=== PATIENT | female | born 1940 | race Caucasian/White ===

== ENCOUNTER 2023-04-22 17:36 | Emergency (ER) | payer MEDICARE, SELFPAY ==
[2023-04-22 17:42] VITALS: BP 148/82; PULSE 80; RESP 22; TEMP 36.8; O2SAT 99; BMI 29.5
--- NOTE | 2023-04-22 17:47 | CT_ITS ---
[facility] [address], [place] [address] Patient Name: PARUL PAEZ MRN: [id number] date: 1940 Sex: F Assigned Patient Location: ER Current Patient Location: Accession/Order Number: [id number] Exam Date: 04/22/2023 19:28 Report Date: 04/22/2023 20:10 At the request of: ROSA ELENA AKINS Procedure: CT abdomen pelvis w con EXAM: CT abdomen pelvis w con HISTORY: Abdominal pain COMPARISON: CT from 04/19/2023 TECHNIQUE: CT abdomen pelvis w con FINDINGS: LOWER CHEST: LUNG BASES / PLEURA: Normal. DISTAL ESOPHAGUS: Normal. HEART / VESSELS: No significant abnormality. ABDOMEN and PELVIS: LIVER: Normal. BILIARY TRACT: Normal. GALLBLADDER: No abnormality. PANCREAS: Normal. SPLEEN: Normal. ADRENALS: Normal. KIDNEYS: Small hypoattenuating lesions in both kidneys, too small to further characterize but likely simple renal cysts. LYMPH NODES: None enlarged. STOMACH / SMALL BOWEL: No significant abnormality. Oral contrast is present and extends into the distal small bowel. COLON / APPENDIX: Colonic diverticulosis. Thickening of the rectosigmoid colon with mild adjacent fat stranding (image 109 of series 3). The appendix is normal. PERITONEUM / MESENTERY: Stranding around the distal colon as described above. No free fluid or air. RETROPERITONEUM: Normal. VESSELS: Severe atherosclerotic disease of the normal caliber abdominal aorta and its major branches. URINARY BLADDER: Normal. Bilateral ureteral jets are visualized. No abnormal filling defect. REPRODUCTIVE ORGANS: Simple cyst of the left ovary measuring 1.7 cm. The right ovary and appears to extend into a right obturator hernia defect (image 154 of series 3). BODY WALL: As mentioned above, right obturator hernia containing what appears to be the right ovary. MUSCULOSKELETAL: No significant abnormality. Mild degenerative arthrosis of both hips. CT/CT abdomen pelvis w con IMPRESSION: 1. Findings of mild and uncomplicated rectosigmoid colitis. 2. Enhancing cutaneous/subcutaneous nodule in the lower anterior chest wall midline, malignancy cannot be excluded. Clinical correlation is recommended. This impression was placed in incidental findings folder. 3. Right obturator hernia defect containing what appears to be the right ovary. Electronically authenticated by: YANIQUE MARTÍNEZ Date: 04/22/2023 20:10
--- NOTE | 2023-04-22 17:52 | ED.ABDPAIN1 ---
HPI - Abdominal Pain General Chief Complaint: Abdominal Pain Stated Complaint: Abdominal Pain Time Seen by Provider: 04/22/23 17:37 Source: patient Mode of arrival: Wheelchair Limitations: no limitations History of Present Illness HPI narrative: Patient is an 82-year-old female who presents to the emergency department for abdominal pain. Daughter is the primary historian as the patient is moaning and guarding her abdomen at time of initial interview. Apparently the patient has had abdominal pain for the last 3 days and was seen at the [facility] emergency department for this. CT and labs were unremarkable, patient's daughter brought her to this facility today because she does not trust [facility] . She saw her PCP today. No new medications started for this pain. Patient has had no fevers, chills, vomiting, diarrhea. Patient's daughter states that the patient has had similar issues with this abdominal pain intermittently for years. She has been seen by Dr. Carney in [place] for gastroenterology. No source of her abdominal pain has ever been found. Related Data Home Medications Medication Instructions Recorded Confirmed escitalopram oxalate 10 mg tablet 10 mg PO DAILY 04/22/23 04/22/23 estradiol 0.01% (0.1 mg/gram) 1 appful vaginal DAILY 04/22/23 04/22/23 vaginal cream Previous Rx's Medication Instructions Recorded hyoscyamine sulfate 0.125 mg 0.125 mg PO Q6H PRN abdominal pain 04/22/23 tablet (Levsin) #12 tabs metronidazole 500 mg tablet 500 mg PO Q12H 10 days #20 tabs 04/22/23 ondansetron 4 mg disintegrating 4 mg PO Q6H PRN nausea and 04/22/23 tablet vomiting #12 tabs tramadol 50 mg tablet 50 mg PO Q4H PRN pain 4 days #15 04/22/23 tabs Allergies Allergy/AdvReac Type Severity Reaction Status Date / Time amoxicillin Allergy Severe Verified 04/22/23 19:37 phenylephrine Allergy Severe Verified 04/22/23 19:37 Review of Systems ROS Constitutional Denies: fever or chills Ears, nose, mouth, and throat Denies: throat pain or nasal congestion Cardiovascular Denies: chest pain Respiratory Denies: shortness of breath or cough Gastrointestinal Reports: abdominal pain; Denies: nausea, vomiting or diarrhea Genitourinary Denies: painful urination Musculoskeletal Denies: back pain or neck pain Integumentary/Breast Denies: rash Neurological Denies: headache PFSH PFSH Medical History (Updated 04/22/23 @ 20:46 by GONZALEZ Mujica) Hyperlipemia ?E78.5 - Hyperlipidemia, unspecified (ICD-10) COPD (chronic obstructive pulmonary disease) ?J44.9 - Chronic obstructive pulmonary disease, unspecified (ICD-10) C. difficile diarrhea ?A04.72 - Enterocolitis due to Clostridium difficile, not specified as recurrent (ICD-10) Diverticulosis ?K57.90 - Diverticulosis of intestine, part unspecified, without perforation or abscess without bleeding (ICD-10) Surgical History (Updated 04/22/23 @ 19:36 by Jessica Cervantes) H/O eye surgery ?Z98.890 - Other specified postprocedural states (ICD-10) Exam Narrative Exam Narrative: Gen.: Awake, alert, Moaning, anxious Head: Normocephalic, atraumatic ENT: Moist mucous membranes Respiratory: No respiratory distress, lungs clear bilaterally Cardio: Regular rate and rhythm Gastrointestinal: Abdomen is soft, Nondistended and diffusely tender to palpation in the bilateral lower quadrants of the abdomen. Voluntary guarding with no rebound noted. Extremities: Moves extremities equally Psych: Normal mood and affect Neuro: No focal neuro deficit Skin: Warm, dry, intact Constitutional Vital Signs, click to edit/add: Last Vital Signs Temp 98.3 F 04/22/23 17:42 Pulse 53 L 04/22/23 20:15 Resp 16 04/22/23 20:15 BP 142/78 H 04/22/23 20:24 Pulse Ox 95 04/22/23 20:15 O2 Del Method Room Air 04/22/23 20:15 Course Vital Signs Vital signs: Vital Signs Temperature 98.3 F 04/22/23 17:42 Pulse Rate 80 04/22/23 17:42 Respiratory Rate 22 04/22/23 17:42 Blood Pressure 148/82 H 04/22/23 17:42 Pulse Oximetry 99 04/22/23 17:42 Oxygen Delivery Method Room Air 04/22/23 17:42 Temperature 98.3 F 04/22/23 17:42 Pulse Rate 53 L 04/22/23 20:15 Respiratory Rate 16 04/22/23 20:15 Blood Pressure 142/78 H 04/22/23 20:24 Pulse Oximetry 95 04/22/23 20:15 Oxygen Delivery Method Room Air 04/22/23 20:15 MDM - Abdominal Pain MDM Narrative Medical decision making narrative: She hadReceived IV fluids, pain medication and nausea medication. Significant improvement with these medications. Lab studies show elevated lactic acid but no other acute abnormalities. CT of the abdomen and pelvis with IV and oral contrast shows the patient has mild uncomplicated colitis and an incidental finding of lung nodule. There is also an incidental finding of right ovary appears to be contained in the hernia in the abdominal wall. Patient is resting comfortably on reevaluation by attending physician. Dr. Hale discussed CT results with the patient and her daughter at bedside. They were offered admission if the patient does not feel comfortable going home, patient and daughter are comfortable with treatment plan to be treated as an outpatient with oral Flagyl and a short course of analgesics and nausea medication. They are instructed to follow-up with general surgery for further evaluation and treatment. Return to the emergency department if symptoms change or worsen. Medical Records Attestation: I reviewed the patient's medical records. Lab Data Attestation: I reviewed the patient's lab results. Labs: Lab Results 04/22/23 04/22/23 Range/Units 18:10 19:00 WBC 6.8 (4.0-11.0) 10^3/uL RBC 3.86 L (4.20-5.40) 10^6/uL Hgb 12.3 (12.0-16.0) g/dL Hct 36.9 (36.0-48.0) % MCV 95.6 (81.0-99.0) fL MCH 31.9 (26.7-34.0) pg MCHC 33.3 (29.9-35.2) g/dL RDW 13.6 (11.0-15.0) % Plt Count 208 (150-450) 10^3/uL MPV 11.4 (9.5-13.5) fL Neut % (Auto) 58.4 (43.0-75.0) % Lymph % (Auto) 32.7 (20.5-60.0) % Rhea % (Auto) 7.8 (1.7-12.0) % Eos % (Auto) 0.6 L (0.9-7.0) % Baso % (Auto) 0.4 (0.2-2.0) % Neut # (Auto) 4.0 (1.4-6.5) 10^3/uL Lymph # (Auto) 2.2 (1.2-3.8) 10^3/uL Rhea # (Auto) 0.5 (0.3-0.8) 10^3/uL Eos # (Auto) 0.0 (0.0-0.7) 10^3/uL Baso # (Auto) 0.0 (0.0-0.1) 10^3/uL Abs Immat Gran (auto) 0.01 (0.00-0.03) 10^3/uL Imm/Tot Granulo (auto) 0.1 (0.0-0.5) % Sodium 136 (136-145) mmol/L Potassium 3.9 (3.5-5.1) mmol/L Chloride 100 (98-107) mmol/L Carbon Dioxide 22.5 (21.0-32.0) mmol/L Anion Gap 17.4 BUN 17.0 (7.0-18.0) mg/dL Creatinine 0.96 (0.55-1.02) mg/dL Est GFR ( Amer) >60 (>=60) Est GFR (Non-Af Amer) 56 L (>=60) BUN/Creatinine Ratio 17.7 Glucose 101 (74-106) mg/dL Lactate 2.4 H* (0.4-2.0) mmol/L Calcium 9.6 (8.5-10.1) mg/dL Total Bilirubin 0.5 (0.2-1.0) mg/dL AST 17 (15-37) U/L ALT 11 L (14-59) U/L Alkaline Phosphatase 76 (46-116) U/L Total Protein 8.0 (6.4-8.2) g/dL Albumin 3.9 (3.4-5.0) g/dL Globulin 4.1 g/dL Albumin/Globulin Ratio 1.0 Lipase 36.0 (16.0-77.0) U/L Urine Color Lt. yellow (YELLOW) Urine Clarity Clear (CLEAR) Urine pH 8.5 (5.0-9.0) Ur Specific [place] 1.010 (1.005-1.025) Urine Protein Negative (NEG/TRACE) mg/dL Urine Glucose (UA) Negative (NEGATIVE) mg/dL Urine Ketones Negative (NEGATIVE) mg/dL Urine Occult Blood Negative (NEGATIVE) Urine Nitrite Negative (NEGATIVE) Urine Bilirubin Negative (NEGATIVE) Urine Urobilinogen 0.2 (0.2-1.0) EU/dL Ur Leukocyte Esterase Negative (NEGATIVE) Imaging Data CT scan - abdomen: Attestation: I have reviewed the pertinent imaging results. Radiologist's impression: ITS Impressions Abdomen/Pelvis CT 04/22/23 17:47 IMPRESSION: 1. Findings of mild and uncomplicated rectosigmoid colitis. 2. Enhancing cutaneous/subcutaneous nodule in the lower anterior chest wall midline, malignancy cannot be excluded. Clinical correlation is recommended. This impression was placed in incidental findings folder. 3. Right obturator hernia defect containing what appears to be the right ovary. Electronically authenticated by: YANIQUE MARTÍNEZ Date: 04/22/2023 20:10 Discharge Plan Discharge Chief Complaint: Abdominal Pain Clinical Impression: Colitis, Abdominal pain Patient Disposition: Home, Self-Care Time of Disposition Decision: 20:46 Condition: Good Mode of Transportation: Private Vehicle Prescriptions / Home Meds: New metronidazole 500 mg tablet 500 mg PO Q12H 10 Days Qty: 20 0RF tramadol 50 mg tablet 50 mg PO Q4H PRN (Reason: pain) 4 Days Qty: 15 0RF Rx Instructions: DX: R10.84 hyoscyamine sulfate [Levsin] 0.125 mg tablet 0.125 mg PO Q6H PRN (Reason: abdominal pain) Qty: 12 0RF ondansetron 4 mg tablet,disintegrating 4 mg PO Q6H PRN (Reason: nausea and vomiting) Qty: 12 0RF No Action escitalopram oxalate 10 mg tablet 10 mg PO DAILY estradiol 0.01 % (0.1 mg/gram) cream 1 appful VAGINAL DAILY Instructions: Acute Abdominal Pain (ED), Colitis (ED) Stand Alone Forms: Portal Instructions Referrals: Betty FLANNERY [Physician] - 1 week John Alvarenga MD [Physician] - 1 week HIRA PAREDES [Primary Care Provider] - 1 week Discharge Date/Time: 04/22/23 21:05
[2023-04-22] MEDS: 0.9 % SODIUM CHLORIDE 1,000 ML 1000 ML IV (18:13)
[2023-04-22] MEDS: HYDROMORPHONE HCL 0.5 MG/0.5 ML SYRINGE IV (18:13)
[2023-04-22] MEDS: HYOSCYAMINE SULFATE 0.125 MG TAB.SUBL SL (18:14)
[2023-04-22] MEDS: ONDANSETRON PF 4 MG/2 ML VIAL IV (18:14)
[2023-04-22 18:28] LABS: Basophils Percent Auto 0.4 % (0.2-2.0); Eosinophils Percent Auto 0.6 % (0.9-7.0); Hematocrit 36.9 % (36.0-48.0); Hemoglobin 12.3 g/dL (12.0-16.0); Immature Granulocytes Abs Auto 0.01 10^3/uL (0.00-0.03); Immature Granulocytes Pct Auto 0.1 % (0.0-0.5); Lymphocytes Absolute Auto 2.2 10^3/uL (1.2-3.8); Lymphocytes Percent Auto 32.7 % (20.5-60.0); Mean Corpuscular HGB Conc 33.3 g/dL (29.9-35.2); Mean Corpuscular Hemoglobin 31.9 pg (26.7-34.0); Mean Corpuscular Volume 95.6 fL (81.0-99.0); Mean Platelet Volume 11.4 fL (9.5-13.5); Monocytes Absolute Auto 0.5 10^3/uL (0.3-0.8); Monocytes Percent Auto 7.8 % (1.7-12.0); Neutrophils Percent Auto 58.4 % (43.0-75.0); Platelet Count 208 10^3/uL (150-450); Red Blood Count 3.86 10^6/uL (4.20-5.40); Red Cell Distribution Width 13.6 % (11.0-15.0); White Blood Count 6.8 10^3/uL (4.0-11.0)
[2023-04-22 18:44] LABS: Alanine Aminotransferase 11 U/L (14-59); Albumin Level 3.9 g/dL (3.4-5.0); Alkaline Phosphatase 76 U/L (46-116); Anion Gap 17.4; Aspartate Amino Transferase 17 U/L (15-37); BUN Creatinine Ratio 17.7; Bilirubin Total 0.5 mg/dL (0.2-1.0); Calcium 9.6 mg/dL (8.5-10.1); Carbon Dioxide 22.5 mmol/L (21.0-32.0); Chloride 100 mmol/L (98-107); Estimated GFR (African America >60 (>=60); Estimated GFR (Non-African Ame 56 (>=60); Globulin 4.1 g/dL; Glucose 101 mg/dL (74-106); Potassium 3.9 mmol/L (3.5-5.1); Sodium 136 mmol/L (136-145)
[2023-04-22 18:50] LABS: Lactate/Lactic Acid 2.4 mmol/L (0.4-2.0)
[2023-04-22 19:10] VITALS: PULSE 60; RESP 16; O2SAT 98
[2023-04-22 19:20] LABS: Bilirubin Urine NEGATIVE (NEGATIVE); Blood Urine NEGATIVE (NEGATIVE); Clarity Urine CLEAR (CLEAR); Color Urine LT. YELLOW (YELLOW); Glucose Urine UA NEGATIVE (NEGATIVE); Ketones Urine NEGATIVE (NEGATIVE); Leukocyte Esterase Urine NEGATIVE (NEGATIVE); Nitrite Urine NEGATIVE (NEGATIVE); Protein Urine NEGATIVE (NEG/TRACE); Urobilinogen Urine 0.2 EU/dL (0.2-1.0); pH Urine 8.5 (5.0-9.0)
[2023-04-22 19:25] LABS: Urine Microscopic Indicated NO
[2023-04-22 19:48] VITALS: PULSE 55; RESP 16; O2SAT 96
[2023-04-22 20:15] VITALS: PULSE 53; RESP 16; O2SAT 95
[2023-04-22 20:24] VITALS: BP 142/78
== END 2023-04-22 21:05 | disposition home or self-care (01) ==
PROVIDERS: Physician Assistant; Emergency Provider Internal Medicine; PCP Family Medicine
DX: K52.9 Noninfective gastroenteritis and colitis, unspecified (principal); R10.9 Unspecified abdominal pain; E78.5 Hyperlipidemia, unspecified; J44.9 Chronic obstructive pulmonary disease, unspecified; Z79.899 Other long term (current) drug therapy; Z98.890 Other specified postprocedural states
CPT/HCPCS: 36415; 74177; 80053; 81003; 83605; 83690; 85025; 96374; 96375; 99285; J1170; J2405; Q9967

== ENCOUNTER 2023-05-15 17:01 | Emergency (ER) | payer MEDICARE, SELFPAY ==
[2023-05-15 17:06] VITALS: BP 182/90; PULSE 72; RESP 26; TEMP 36.9; O2SAT 98; BMI 21.3
--- OUTSIDE RECORDS SUMMARY | 2023-05-15 17:11 | XMS_ITS | CCD ---
Author Name Unknown Address [facility] [address] [place] [address] Organization [facility] Care Team Providers Care Job Captain Name Role Phone Manuel Gould Unavailable DO Manuel Gould Primary Care Provider DO Manuel Gould Attending Provider DO Antonio Sierra Attending Provider DO Manuel Gould Primary Care Provider DO Manuel Gould Attending Provider [phone] Rubens Bellamy Unavailable DO Manuel Gould Referring Provider Self, Referral Attending Provider Unavailable DO Lazarus Liu Emergency Provider DO Manuel Gould Primary Care Provider Manuel Gould Admitting Unavailable Manuel Gould Primary Care Unavailable Manuel Gould Attending Unavailable Manuel Gould Primary Care Unavailable Manuel Gould Referring Unavailable Self, Referral Admitting Unavailable Self, Referral Attending Unavailable Manuel Gould Primary Care Unavailable Lazarus Liu Admitting Unavailable Lazarus Liu Attending Unavailable Allergies Allergy Classification Reported Allergen(s) Allergy Type Date of Onset Reaction(s) Facility (10 sources) Amoxicillin Drug Allergy Unknown [place] [facility] Other (10 sources) Phenylephrine Drug Allergy Unknown [place] [facility] Other (6 sources) Amoxicillin; Translations: [amoxicillin] Drug Allergy 0 Unknown Reaction [facility] (6 sources) Phenylephrine; Translations: [phenylephrine] Drug Allergy 0 Unknown Reaction [facility] Medications Current Medications Medication Drug Class(es) Dates Sig (Normalized) Sig (Original) biotin 1 mg chewable tablet (10 sources) Biotin 1000 MCG as directed Orally BID Active Biotin 1000 MCG as directed Orally BID Active Biotin 1000 MCG as directed Orally BID Not-Taking busPIRone hydrochloride 5 mg oral tablet (1 source) take 1 tablet by mouth every twelve hours busPIRone HCl 5 MG 1 tablet Orally Twice a day Active Calcium Carbonate (2 sources) Caltrate 600 Act bibiana calcium carbonate 1500 mg / cholecalciferol 800 unt chewable tablet (5 sources) Vitamin D Start: 10-14-19 18 take 1 tablet by mouth twice daily Calcium Carbonate-Vitamin D3 (Caltrate 600 Plus D) 600 mg (1,500 mg)-800 unit Tablet,Chewable Active 1 TAB PO Twice daily October 12, 2017 11:00pm cholecalciferol 0.05 mg oral capsule (3 sources) Vitamin D take 1 capsule by mouth every twenty-four hours Vitamin D 50 MCG (2000 UT) 1 tablet Orally Once a day Active Commode Bedside - (8 sources) Start: 11-17-19 20 Commode Bedside - as directed for 90 day(s) Oct, Active escitalopram 10 mg oral tablet (11 sources) Serotonin Reuptake Inhibitor Start: 04-19-19 take 10 mg by mouth once daily Escitalopram Oxalate Active 10 MG PO Daily April 19, 2023 12:00am take 1 tablet by buck th every twenty-four hours Escitalopram Oxalate 5 MG 1 tablet Orall y Once a day for 90 days Active estradiol 0.1 mg/ml vaginal cream (15 sources) Estrogen Start: 10-13-2017 Estradiol (Est race) 0.01 % (0.1 mg/gram) Cream Active 1 GM VAGINAL every week October 12, 2017 11:00pm Estrace 0.1 MG/G M Vaginal Active Estrace 0.1 MG/G M Vaginal Active glucosamine hydrochloride 750 mg oral tablet (15 sources) Start: 12-03-2018 take 2 tablets by mouth every twelve hours Glucosamine 750 MG 2 capsule with a meal Orally BID Nov, Active Start: 12-03-2018 take 2 capsules by m outh twice daily Glucosamine 750 MG 2 capsule with a meal Orally BID Nov, Active Start: 10-13-2017 Glucosamine 2k [id number] Active 1 TAB PO As Directed October 12, 2017 11:00pm Start: 10-13-2017 Glucosamine 2k [id number] Active 1 TAB PO As Directed October 13, 2017 12:00am ibandronic acid 150 mg oral tablet (11 sources) Bisphosphonate Start: 04-19-2023 take 150 mg by mouth every month Ibandronate Active 150 MG PO every month April 19, 2023 12:00am Lactobacillus Combination No.4 (Probiotic) 3 billion cell Capsule (5 sources) Start: 10-13-2017 take 3 capsules by mouth once daily Lactobacillus Combination No.4 (Probiotic) 3 billion cell Capsule Active 3000 MMU CELLS PO Daily October 12, 2017 11:00pm Start: 10-13-2017 take 3 capsules by m outh once daily Lactobacillus Combination No.4 (Probiotic) 3 billion cell Capsule Active 3000 MMU CELLS PO Daily October 13, 2017 12:00am loperamide hydrochloride 2 mg oral tablet (15 sources) Opioid Agonist Start: 08-20-2017 Loperamide (Im odium A-D) 2 mg Tablet Active 2 MG PO Every 2 hours August 19, 2017 11:00pm after each loose stool until symptoms controlled; do not exceed 16 mg total dose in 24 hrs Imodium A-D PRN Not-Taking/PRN Imodium A-D PRN Not-Taking Probiotic Daily - (10 sources) Probiotic Daily - Orally Active Vitamin D 1000 UNIT (5 sources) take 1 tablet by buck th once daily Vitamin D 1000 UNIT 1 tablet Orally Once a day Active Vitamin D 50 MCG (2000 UT) (2 sources) take 1 tablet by buck th once daily Vitamin D 50 MCG (2000 UT) 1 tablet Orally Once a day Active Completed/Discontinued Medications Medication Drug Class(es) Dates Sig (Normalized) Sig (Original) betamethasone 0.5 mg/ml / clotrimazole 10 mg/ml topical cream (5 sources) Azole Antifungal, Corticosteroid Start: 10-13-2017 End: 04-19-2023 Clotrimazole-Beta methasone (Lotrisone) 1-0.05 % Cream Discontinued 1 APPLIC TOPICAL As Directed October 12, 2017 11:00pm April 19, 2023 2:50pm Calcium 600+D Plus Minerals 600-400 MG-UNIT (10 sources) take 1 tablet by mouth twice daily at mealtime Calcium 600+D Plus Minerals 600-400 MG-UNIT 1 tablet with meals Orally Twice a day for 30 day(s) Not-Taking/PRN take 1 tablet by buck th twice daily at mealtime Calcium 600+D Plus Minerals 600-400 MG-UNIT 1 tablet with meals Orally Twice a day for 30 day(s) Not-Taking take 1 tablet by buck th twice daily at mealtime Calcium 600+D Plus Minerals 600-400 MG-UNIT 1 tablet with meals Orally Twice a day for 30 day(s) Active hydrOXYzine hydrochloride 25 mg oral tablet (8 sources) Antihistamine Start: 10-13-2017 End: 04-19-2023 take 25 mg by mouth four times daily Hydroxyzine Hcl Discontinued 25 MG PO Four times daily October 12, 2017 11:00pm April 19, 2023 2:51pm take 1 tablet by buck th every twenty-four hours hydrOXYzine HCl 25 MG 1 tablet at bedtim e as needed Orally Once a day Active melatonin 5 mg oral tablet (5 sources) Start: 10-13-2017 End: 04-19-2023 take 5 mg by mouth at bedtime Melatonin Discontinued 5 MG PO Bedtime October 12, 2017 11:00pm April 19, 2023 2:51pm Triamcinolone (10 sources) Corticosteroid Start: 07-07-2012 KENALOG - 10 m g Jun, 40 mg Problems Problem Classification Problem Date Documented Da te Episodic/Chronic Abdominal hernia (1 source) Ventral hernia without obstruction or gangrene Episodic Abdominal pain (2 sources) Abdominal pain; Translations: [Unspecified abdominal pain] Onset: 04-19-2023 04-19-2023 Episodic Anxiety disorders (20 sources) Anxiety attack ; Translations: [Panic disorder [episodic paroxysmal anxiety]] Onset: 06-12-2021 Resolved: 06-12-2021 Chronic Chronic obstructive pulmonary disease and bronchiectasis (10 sources) Chronic obstructive lung disease; Translations: [Chronic obstructive pulmonary disease, unspecified] Chronic Disorders of lipid metabolism (11 sources) Mixed hyperlipidemia; Translations: [Mixed hyperlipidemia] Onset: 06-12-2021 Resolved: 06-12-2021 Chronic Diverticulosis and diverticulitis (20 sources) Diverticulosis of sigmoid colon; Translations: [Diverticulosis of large intestine without perforation or abscess without bleeding] Chronic Hemorrhoids (10 sources) Hemorrhoids; Translations: [Unspecified hemorrhoids] Episodic Immunizations and screening for infectious disease (1 source) Encounter for immunization Episodic Malaise and fatigue (11 sources) Fatigue; Translations: [Chronic fatigue, unspecified] Chronic Malaise and fatigue (5 sources) Asthenia; Translations: [Weakness] 10-08-2019 Episodic Nausea and vomiting (10 sources) Nausea and vomiting; Translations: [Nausea with vomiting, unspecified] Episodic Other and unspecified benign neoplasm (5 sources) History of polyp of colon; Translations: [Personal history of colonic polyps] 10-13-2017 Episodic Other gastrointestinal disorders (10 sources) Irritable bowel syndrome with diarrhea; Translations: [Irritable bowel syndrome with diarrhea] Chronic Other gastrointestinal disorders (15 sources) Diarrhea; Translations: [Diarrhea, unspecified] 10-08-2019 Episodic Other gastrointestinal disorders (10 sources) Loose stool; Translations: [Other fecal abnormalities] Episodic Other nutritional; endocrine; and metabolic disorders (10 sources) Weight loss; Translations: [Abnormal weight loss] Episodic Unclassified (1 source) Encounter for screening mammogram for malignant neoplasm of breast; Translations: [Encounter for screening mammogram for malignant neoplasm of breast] Onset: 01-13-2023 Unclassified (1 source) Chronic fatigue, unspecified; Translations: [Chronic fatigue, unspecified] Onset: 12-16-2022 Results Test Name Value Interpretation Reference Range Facility Activated partial thrombopla stin time (aPTT) in platelet poor plasma by coagulation aOrdered By: Lazarus Liu on 04-19-2023 aPTT Coag (PPP) [Time] 29.3 s 25.1-36.5 [facility] Comment on above: A hematocrit value g reater than 55% may lead to inaccurate results in coagulation testing. Patients having hematocrit values >55% require a special collection tube for coagulation studies. Please contact the laboratory at [phone] for redraw instructions. Alanine aminotransferase [En zymatic activity/volume] in Serum or PlasmaOrdered By: Lazarus Liu on 04-19-2023 ALT [Catalytic activity/Vol] 9 U/L 7-52 [facility] Albumin [Mass/volume] in Ser um or Plasma by Bromocresol green (BCG) dye binding methoOrdered By: Lazarus Liu on 04-19-2023 Albumin BCG dye [Mass/Vol] 4.5 g/dL 3.5-5.7 [facility] Alkaline phosphatase [Enzyma tic activity/volume] in Serum or PlasmaOrdered By: Lazarus Liu on 04-19-2023 ALP [Catalytic activity/Vol] 80 U/L 34-104 [facility] Aspartate aminotransferase [ Enzymatic activity/volume] in Serum or PlasmaOrdered By: Lazarus Liu on 04-19-2023 AST [Catalytic activity/Vol] 22 U/L 13-39 [facility] Basic Metabolic Panelon 03-25 Anion gap [Moles/Vol] 15.0 mmol/L Normal 6.0-15.0 [facility] Comment on above: Performed By: #### C BC, PT, PTT, HEPATIC, BMP, LIPASE #### [facility] [address] Calcium [Mass/Vol] 9.8 mg/dL Normal 8.6-10.3 [facility] Comment on above: Performed By: #### C BC, PT, PTT, HEPATIC, BMP, LIPASE #### [facility] [address] [place] [address] [place] Chloride [Moles/Vol] 102 mmol/L Normal 98-107 [facility] Comment on above: Performed By: #### C BC, PT, PTT, HEPATIC, BMP, LIPASE #### [facility] [address] [place] [id number] [place] CO2 [Moles/Vol] 25.3 mmol/L Normal 21.0-31.0 [facility] Comment on above: Performed By: #### C BC, PT, PTT, HEPATIC, BMP, LIPASE #### [facility] [address] [place] [id number] [place] Creatinine [Mass/Vol] 0.81 mg/dL Normal 0.60-1.20 [facility] Comment on above: Performed By: #### C BC, PT, PTT, HEPATIC, BMP, LIPASE #### [facility] [address] [place] [id number] [place] Creatinine Clr Calc Pharmacy 39.79 Normal [facility] Comment on above: Performed By: #### C BC, PT, PTT, HEPATIC, BMP, LIPASE #### [address] GFR/1.73 sq M.predicted MDRD (S/P/Bld) [Vol rate/Area] mL/min/{1.73_m2} Normal [facility] Comment on above: Performed By: #### C BC, PT, PTT, HEPATIC, BMP, LIPASE #### [address] Glucose [Mass/Vol] 99 mg/dL Normal 70-100 [facility] Comment on above: Result Comment: [facility] Glucose Reference Range is dependent on time and content of last meal. Glucose of more than 200 mg/dL in a nonstressed, ambulatory subject supports the diagnosis of Diabetes Mellitus. ADA recommended reference range Performed By: #### C BC, PT, PTT, HEPATIC, BMP, LIPASE #### [address] Potassium [Moles/Vol] 4.3 mmol/L Normal 3.5-5.1 [facility] Comment on above: Performed By: #### C BC, PT, PTT, HEPATIC, BMP, LIPASE #### [address] Sodium [Moles/Vol] 138 mmol/L Normal 136-145 [facility] Comment on above: Performed By: #### C BC, PT, PTT, HEPATIC, BMP, LIPASE #### [address] Urea nitrogen [Mass/Vol] 13 mg/dL Normal 7-25 [facility] Comment on above: Performed By: #### C BC, PT, PTT, HEPATIC, BMP, LIPASE #### [address] Basophils Auto (Bld) [#/Vol] Ordered By: Lazarus Liu on 04-19-2023 Basophils (Bld) [#/Vol] 0.0 10*3/uL 0.0-0.2 [facility] Basophils/100 WBC Auto (Bld) Ordered By: Lazarus Liu on 04-19-2023 Basophils/100 WBC (Bld) 0.4 % . [facility] Bilirubin Test strip Ql (U)O rdered By: Lazarus iLu on 04-19-2023 Bilirubin Ql (U) Negative Negative [facility] Bilirubin.direct [Mass/volum e] in Serum or PlasmaOrdered By: Lazarus Liu on 04-19-2023 Bilirubin.direct [Mass/Vol] 0.10 mg/dL 0.03-0.18 [facility] Bilirubin.total [Mass/volume ] in Serum or PlasmaOrdered By: Lazarus Liu on 04-19-2023 Bilirubin [Mass/Vol] 1.0 mg/dL 0.3-1.0 [facility] CT abdomen pelvis w conon CT abdomen pelvis w con [facility] [place] [address] CT Scan Report Signed Patient: Jelena Paez MR#: [id number] : 1940 Acct:[id number] Age/Sex: 82 / F ADM Date: 04/19/23 Loc: ER Room: Type: [facility] ER Attending Dr: Copies to: Lazarus Liu DO Ordering Provider: Lazarus Liu DO Date of Service: 04/19/23 CT/CT abdomen pelvis w con: Abdominal Pain CT Abdomen and Pelvis withcontrast TECHNIQUE: Axial imaging with 2-D reconstruction.75 cc of Isovue-300. The CT exam was performed using one or more the following dose reduction techniques: Automated exposure control, adjustment of the MA and/or Kv according to patient size, or use of the iterative reconstruction technique. COMPARISON: 10/08/2019 History: Abdominal pain. Right lower quadrant pain. LIMITATIONS: None LOWER THORAX Unremarkable LIVER: Unremarkable GALLBLADDER: No gallbladder abnormality identified. BILE DUCTS: No dilatation SPLEEN: Unremarkable PANCREAS: Unremarkable ADRENAL GLANDS: Unremarkable KIDNEYS:Unremarkable AORTA: No abdominal aortic aneurysm identified. RETROPERITONEUM: No significant retroperitoneal abnormalities identified. MESENTERY:Unremarkable SMALL BOWEL: The small bowel loops are nondistended. APPENDIX: The appendix is not seen. No pericecal inflammatory changes identified. COLON: Colonic diverticulosis. URINARY BLADDER: Urinary bladder is unremarkable. REPRODUCTIVE SYSTEM: Reproductive structures are unremarkable. PNEUMOPERITONEUM: None PERITONEAL FLUID:None BONY STRUCTURES: Unremarkable ABDOMINAL WALL: Unremarkable CT/CT abdomen pelvis w con IMPRESSION: No acute findings. Appendix is not visualized. No pericecal inflammatory changes. Impression dictated by: Kimo Brand M.D.04/19/2023 2:45 PM Dictation Location: [place] [address] Transcribed By: [facility] 04/19/23 1445 Dictated By: Kimo Brand DO 04/19/23 1436 Signed By: 04/19/23 1445 Normal [facility] Calcium [Mass/volume] in Ser um or PlasmaOrdered By: Lazarus Liu on 04-19-2023 Calcium [Mass/Vol] 9.8 mg/dL 8.6-10.3 [facility] Carbon dioxide, total [Moles /volume] in Serum or PlasmaOrdered By: Lazarus Liu on 04-19-2023 CO2 [Moles/Vol] 25.3 mmol/L 21.0-31.0 [facility] Chloride [Moles/volume] in S betty or PlasmaOrdered By: Lazarus Liu on 04-19-2023 Chloride [Moles/Vol] 102 mmol/L 98-107 [facility] Color Auto (U)Ordered By: Enrique Liu on 04-19-2023 Color (U) Yellow Yellow [facility] Complete Blood Count Auto Di ffon 04-19-2023 Basophils (Bld) [#/Vol] 0.0 10*3/uL Normal 0.0-0.2 [facility] Comment on above: Result Comment: PERF ORMED BY: [place] [id number] PATHOLOGIST [employer] MONIK ROJAS M.D. Performed By: #### C BC, PT, PTT, HEPATIC, BMP, LIPASE #### [address] Basophils/100 WBC (Bld) 0.4 % Normal . [facility] Comment on above: Performed By: #### C BC, PT, PTT, HEPATIC, BMP, LIPASE #### [address] Eosinophils (Bld) [#/Vol] 0.0 10*3/uL Normal 0.0-0.45 [facility] Comment on above: Performed By: #### C BC, PT, PTT, HEPATIC, BMP, LIPASE #### [address] Eosinophils/100 WBC (Bld) 0.6 % Normal . [facility] Comment on above: Performed By: #### C BC, PT, PTT, HEPATIC, BMP, LIPASE #### [address] Erythrocyte distribution width (RBC) [Ratio] 14.1 % Normal 11.9-15.3 [facility] Comment on above: Performed By: #### C BC, PT, PTT, HEPATIC, BMP, LIPASE #### [address] Hematocrit (Bld) [Volume fraction] 39.9 % Normal 34.0-46.4 [facility] Comment on above: Performed By: #### C BC, PT, PTT, HEPATIC, BMP, LIPASE #### [address] Hemoglobin (Bld) [Mass/Vol] 13.3 g/dL Normal 11.8-15.4 [facility] Comment on above: Performed By: #### C BC, PT, PTT, HEPATIC, BMP, LIPASE #### [address] Lymphocytes (Bld) [#/Vol] 1.3 10*3/uL Normal 1.00-4.8 [facility] Comment on above: Performed By: #### C BC, PT, PTT, HEPATIC, BMP, LIPASE #### [address] Lymphocytes/100 WBC (Bld) 19.4 % Normal . [facility] Comment on above: Performed By: #### C BC, PT, PTT, HEPATIC, BMP, LIPASE #### [address] MCH (RBC) [Entitic mass] 31.4 pg Normal 24.7-34.3 [facility] Comment on above: Performed By: #### C BC, PT, PTT, HEPATIC, BMP, LIPASE #### [address] MCV (RBC) [Entitic vol] 94.2 fL Normal 80-100 [facility] Comment on above: Performed By: #### C BC, PT, PTT, HEPATIC, BMP, LIPASE #### [address] Mean Corpuscular HGB Conc 33.4 g/dL Normal 32.0-35.0 [facility] Comment on above: Performed By: #### C BC, PT, PTT, HEPATIC, BMP, LIPASE #### [address] Monocytes (Bld) [#/Vol] 0.4 10*3/uL Normal 0.0-0.8 [facility] Comment on above: Performed By: #### C BC, PT, PTT, HEPATIC, BMP, LIPASE #### [address] Monocytes/100 WBC (Bld) 19.68 % Normal 0.00-20.00 [facility] Comment on above: Performed By: #### C BC, PT, PTT, HEPATIC, BMP, LIPASE #### [address] Monocytes/100 WBC (Bld) 6.2 % Normal . [facility] Comment on above: Performed By: #### C BC, PT, PTT, HEPATIC, BMP, LIPASE #### [address] Neutrophils (Bld) [#/Vol] 4.8 10*3/uL Normal 1.8-7.7 [facility] Comment on above: Performed By: #### C BC, PT, PTT, HEPATIC, BMP, LIPASE #### [address] Neutrophils/100 WBC (Bld) 73.4 % Normal . [facility] Comment on above: Performed By: #### C BC, PT, PTT, HEPATIC, BMP, LIPASE #### [address] NRBC% 0.1 /100{WBC} Normal 0-0.5 [facility] Comment on above: Performed By: #### C BC, PT, PTT, HEPATIC, BMP, LIPASE #### [address] Platelet mean volume (Bld) [Entitic vol] 9.3 fL Normal 6.3-10.7 [facility] Comment on above: Performed By: #### C BC, PT, PTT, HEPATIC, BMP, LIPASE #### [address] Platelets (Bld) [#/Vol] 241 10*3/uL Normal 150-450 [facility] Comment on above: Performed By: #### C BC, PT, PTT, HEPATIC, BMP, LIPASE #### [address] RBC (Bld) [#/Vol] 4.24 10*6/uL Normal 3.60-5.00 [facility] Comment on above: Performed By: #### C BC, PT, PTT, HEPATIC, BMP, LIPASE #### [address] WBC (Bld) [#/Vol] 6.5 10*3/uL Normal 3.8-11.6 [facility] Comment on above: Performed By: #### C BC, PT, PTT, HEPATIC, BMP, LIPASE #### [address] Creatinine [Mass/volume] in Serum or PlasmaOrdered By: Lazarus Liu on 04-19-2023 Creatinine [Mass/Vol] 0.81 mg/dL 0.60-1.20 [facility] ECG 12 lead ECGon 04-19-2023 ECG 12 lead ECG [facility] [place] [address] [place] [address] Electrocardiograph Report Signed Patient: Jelena Paez MR#: [id number] : 1940 Acct:[id number] Age/Sex: 82 / F ADM Date: 04/19/23 Loc: ER Room: Type: [facility] ER Attending Dr: Ordering Provider: Lazarus Liu DO Date of Service: 04/19/23 ECG/ECG 12 lead ECG: Abdominal Pain Copies to: Test Reason : Blood Pressure : 202/094 mmHG Vent. Rate : 055 BPM Atrial Rate : 055 BPM P-R Int : 134 ms QRS Dur : 084 ms QT Int : 468 ms P-R-T Axes : 080 050 104 degrees QTc Int : 447 ms Sinus bradycardia with premature atrial complexes Cannot rule out Anterior infarct , age undetermined Abnormal ECG When compared with ECG of 15-OCT-2006 08:19, premature atrial complexes are now present Minimal criteria for Anterior infarct are now present Nonspecific T wave abnormality now evident in Anterolateral leads Confirmed by Lazarus Liu DO ([id number]) on 04/19/2023 3:57:18 PM Referred By: Electronically Signed By:Lazarus Liu DO Transcribed By: MUS Signed By Lazarus Liu DO 4 1557 Normal [facility] Eosinophils Auto (Bld) [#/Vo l]Ordered By: Lazarus Liu on 04-19-2023 Eosinophils (Bld) [#/Vol] 0.0 10*3/uL 0.0-0.45 [facility] Eosinophils/100 WBC Auto (Bl d)Ordered By: Lazarus Liu on 04-19-2023 Eosinophils/100 WBC (Bld) 0.6 % . [facility] Erythrocyte distribution wid th Auto (RBC) [Ratio]Ordered By: Lazarus Liu on 04-19-2023 Erythrocyte distribution width (RBC) [Ratio] 14.1 % 11.9-15.3 [facility] Globulin Calc (S) [Mass/Vol] Ordered By: Lazarus Liu on 04-19-2023 Globulin (S) [Mass/Vol] 3.2 g/dL [facility] Glucose [Mass/volume] in Ser um or PlasmaOrdered By: Lazarus Liu on 04-19-2023 Glucose [Mass/Vol] 99 mg/dL 70-100 [facility] Comment on above: ADA recommended refe renaristides rangeRandom Glucose Reference Range is dependent on time and content of last meal. Glucose of more than 200 mg/dL in a nonstressed, ambulatory subject supports the diagnosis of Diabetes Mellitus. Hematocrit Auto (Bld) [Volum e fraction]Ordered By: Lazarus Liu on 04-19-2023 Hematocrit (Bld) [Volume fraction] 39.9 % 34.0-46.4 [facility] Hemoglobin [Mass/volume] in BloodOrdered By: Lazarus Liu on 04-19-2023 Hemoglobin (Bld) [Mass/Vol] 13.3 g/dL 11.8-15.4 [facility] Hepatic Panelon 04-19-2023 Albumin [Mass/Vol] 4.5 g/dL Normal 3.5-5.7 [facility] Comment on above: Performed By: #### C BC, PT, PTT, HEPATIC, BMP, LIPASE #### [facility] [address] [place] [address] [place] Albumin/Globulin [Mass ratio] 1.4 {ratio} Normal [facility] Comment on above: Performed By: #### C BC, PT, PTT, HEPATIC, BMP, LIPASE #### [facility] [address] [id number] [place] ALP [Catalytic activity/Vol] 80 U/L Normal 34-104 [facility] Comment on above: Performed By: #### C BC, PT, PTT, HEPATIC, BMP, LIPASE #### [facility] [address] [id number] [place] ALT [Catalytic activity/Vol] 9 U/L Normal 7-52 [facility] Comment on above: Performed By: #### C BC, PT, PTT, HEPATIC, BMP, LIPASE #### [facility] [address] [id number] [place] AST [Catalytic activity/Vol] 22 U/L Normal 13-39 [facility] Comment on above: Performed By: #### C BC, PT, PTT, HEPATIC, BMP, LIPASE #### [facility] [address] Bilirubin [Mass/Vol] 1.0 mg/dL Normal 0.3-1.0 [facility] Comment on above: Performed By: #### C BC, PT, PTT, HEPATIC, BMP, LIPASE #### [facility] [address] Bilirubin,Indirect 0.9 mg/dL Normal [facility] Comment on above: Performed By: #### C BC, PT, PTT, HEPATIC, BMP, LIPASE #### [facility] [address] Bilirubin.indirect [Mass/Vol] 0.10 mg/dL Normal 0.03-0.18 [facility] Comment on above: Performed By: #### C BC, PT, PTT, HEPATIC, BMP, LIPASE #### [address] Globulin (S) [Mass/Vol] 3.2 g/dL Normal [facility] Comment on above: Performed By: #### C BC, PT, PTT, HEPATIC, BMP, LIPASE #### [facility] [address] Protein [Mass/Vol] 7.7 g/dL Normal 6.4-8.9 [facility] Comment on above: Performed By: #### C BC, PT, PTT, HEPATIC, BMP, LIPASE #### [address] INR in Platelet poor plasma by Coagulation assayOrdered By: Lazarus Liu on 04-19-2023 INR Coag (PPP) [Relative time] 1.0 {INR} [facility] Comment on above: INR Therapeutic Rang e A) Pre- and Peroperative OAT started two weeks before surgery. NOT HIP SURGERY: 1.5 - 2.5 HIP SURGERY: 2 - 3B) Primary and secondary prevention of venous THROMBOSIS: 2 - 3C) Active venous thrombosis, pulmonary embolismand prevention of recurrent venous thrombosis: 2 - 3D) Prevention of arterial thromboembolismincluding patients with mechanical heart valves: 3 - 4.5 Ketones Auto test strip (U) [Mass/Vol]Ordered By: Lazarus Liu on 04-19-2023 Ketones (U) [Mass/Vol] Negative Negative [facility] Leukocytes [#/volume] correc gerhard for nucleated erythrocytes in Blood by Automated counOrdered By: Lazarus Liu on 04-19-2023 WBC corrected for nucl RBC Auto (Bld) [#/Vol] 6.5 10*3/uL 3.8-11.6 [facility] Lipaseon 04-19-2023 Lipase [Catalytic activity/Vol] 26.0 U/L Normal 11.0-82.0 [facility] Comment on above: Result Comment: PERF ORMED BY: [place] [address] PATHOLOGIST VIDEOGAME TESTER MONIK ROJAS M.D. Performed By: #### C BC, PT, PTT, HEPATIC, BMP, LIPASE #### [address] Lipase [Enzymatic activity/v olume] in Serum or PlasmaOrdered By: Lazarus Liu on 04-19-2023 Lipase [Catalytic activity/Vol] 26.0 U/L 11.0-82.0 [facility] Lymphocytes Auto (Bld) [#/Vo l]Ordered By: Lazarus Liu on 04-19-2023 Lymphocytes (Bld) [#/Vol] 1.3 10*3/uL 1.00-4.8 [facility] Lymphocytes/100 WBC Auto (Bl d)Ordered By: Lazarus Liu on 04-19-2023 Lymphocytes/100 WBC (Bld) 19.4 % . [facility] MCH Auto (RBC) [Entitic mass ]Ordered By: Lazarus Liu on 04-19-2023 MCH (RBC) [Entitic mass] 31.4 pg 24.7-34.3 [facility] MCHC Auto (RBC) [Mass/Vol]Or dered By: Lazarus Liu on 04-19-2023 MCHC (RBC) [Mass/Vol] 33.4 g/dL 32.0-35.0 [facility] MCV Auto (RBC) [Entitic vol] Ordered By: Lazarus Liu on 04-19-2023 MCV (RBC) [Entitic vol] 94.2 fL 80-100 [facility] Monocyte distribution width [Entitic volume] in Blood by AutomatedOrdered By: Lazarus Liu on 04-19-2023 Monocyte distribution width Auto (Bld) [Entitic vol] 19.68 % 0.00-20.00 [facility] Monocytes Auto (Bld) [#/Vol] Ordered By: Lazarus Liu on 04-19-2023 Monocytes (Bld) [#/Vol] 0.4 10*3/uL 0.0-0.8 [facility] Monocytes/100 WBC Auto (Bld) Ordered By: Lazarus Liu on 04-19-2023 Monocytes/100 WBC (Bld) 6.2 % . [facility] Neutrophils Auto (Bld) [#/Vo l]Ordered By: Lazarus Liu on 04-19-2023 Neutrophils (Bld) [#/Vol] 4.8 10*3/uL 1.8-7.7 [facility] Neutrophils/100 WBC Auto (Bl d)Ordered By: Lazarus Liu on 04-19-2023 Neutrophils/100 WBC (Bld) 73.4 % . [facility] Nitrite Test strip Ql (U)Ord ered By: Lazarus Liu on 04-19-2023 Nitrite Ql (U) Negative Negative [facility] No Panel InformationOrdered By: Lazarus Liu on 04-19-2023 Estimated GFR (CKD-EPI) > 60.0 mL/Min [facility] Creatinine Clearance (Chem 39.79 [facility] Nucleated erythrocytes [Pres ence] in Blood by Automated countOrdered By: Lazarus Liu on 04-19-2023 Nucleated RBC Auto Ql (Bld) 0.1 /100{WBC} 0-0.5 [facility] Partial Thromboplastin Timeo n 04-19-2023 aPTT Coag (Bld) [Time] 29.3 s Normal 25.1-36.5 [facility] Comment on above: Result Comment: A he matocrit value greater than 55% may lead to inaccurate results in coagulation testing. Patients having hematocrit values >55% require a special collection tube for coagulation studies. Please contact the laboratory at [phone] for redraw instructions. PERFORMED BY: [place] [id number] PATHOLOGIST VIDEOGAME TESTER MONIK ROJAS M.D. Performed By: #### T SH3 wRFLX, CMP, CBC #### [facility] [address] [place] [address] Platelet mean volume Auto (B ld) [Entitic vol]Ordered By: Lazarus Liu on 04-19-2023 Platelet mean volume (Bld) [Entitic vol] 9.3 fL 6.3-10.7 [facility] Platelets Auto (Bld) [#/Vol] Ordered By: Lazarus Liu on 04-19-2023 Platelets (Bld) [#/Vol] 241 10*3/uL 150-450 [facility] Potassium [Moles/volume] in Serum or PlasmaOrdered By: Lazarus Liu on 04-19-2023 Potassium [Moles/Vol] 4.3 mmol/L 3.5-5.1 [facility] Protein Auto test strip (U) [Mass/Vol]Ordered By: Lazarus Liu on 04-19-2023 Protein (U) [Mass/Vol] Negative Negative [facility] Protein [Mass/volume] in Ser um or PlasmaOrdered By: Lazarus Liu on 04-19-2023 Protein [Mass/Vol] 7.7 g/dL 6.4-8.9 [facility] Prothrombin Time INRon 04-19 INR Coag (PPP) [Relative time] 1.0 {INR} Normal [facility] Comment on above: Result Comment: INR Therapeutic Range A) Pre- and Peroperative OAT started two weeks before surgery. NOT HIP SURGERY: 1.5 - 2.5 HIP SURGERY: 2 - 3 B) Primary and secondary prevention of venous THROMBOSIS: 2 - 3 C) Active venous thrombosis, pulmonary embolism and prevention of recurrent venous thrombosis: 2 - 3 D) Prevention of arterial thromboembolism including patients with mechanical heart valves: 3 - 4.5 Performed By: #### T SH3 wRFLX, CMP, CBC #### [facility] [address] [place], [place] [id number] [place] PT Coag (PPP) [Time] 11.2 s Normal 9.0-12.9 [facility] Comment on above: Result Comment: A he matocrit value greater than 55% may lead to inaccurate results in coagulation testing. Patients having hematocrit values >55% require a special collection tube for coagulation studies. Please contact the laboratory at [phone] for redraw instructions. Performed By: #### T SH3 wRFLX, CMP, CBC #### [facility] [address] Prothrombin time (PT)Ordered By: Lazarus Liu on 04-19-2023 PT Coag (PPP) [Time] 11.2 s 9.0-12.9 [facility] Comment on above: A hematocrit value g reater than 55% may lead to inaccurate results in coagulation testing. Patients having hematocrit values >55% require a special collection tube for coagulation studies. Please contact the laboratory at [phone] for redraw instructions. RBC Auto (Bld) [#/Vol]Ordere d By: Lazarus Liu on 04-19-2023 RBC (Bld) [#/Vol] 4.24 10*6/uL 3.60-5.00 [facility] Serum or plasma albumin/glob ulin mass ratioOrdered By: Lazarus Liu on 04-19-2023 Albumin/Globulin [Mass ratio] 1.4 {ratio} [facility] Serum or plasma anion gap de terminationOrdered By: Lazarus Liu on 04-19-2023 Anion gap [Moles/Vol] 15.0 mmol/L 6.0-15.0 [facility] Serum or plasma non-glucuron idated bilirubin measurement (mass/volume)Ordered By: Lazarus Liu on 04-19-2023 Bilirubin.indirect [Mass/Vol] 0.9 mg/dL [facility] Sodium [Moles/volume] in Ser um or PlasmaOrdered By: Lazarus Liu on 04-19-2023 Sodium [Moles/Vol] 138 mmol/L 136-145 [facility] Specific gravity Auto test s trip (U) [Rel density]Ordered By: Lazarus Liu on 04-19-2023 Specific gravity (U) [Rel density] 1.007 1.001-1.030 [facility] Urea nitrogen [Mass/volume] in Serum or PlasmaOrdered By: Lazarus Liu on 04-19-2023 Urea nitrogen [Mass/Vol] 13 mg/dL 10-15 [facility] Urinalysison 04-19-2023 Appearance (U) Clear Normal Clear [facility] Comment on above: Order Comment: Reaso n for Exam Chronic fatigue Performed By: #### T SH3 wRFLX, CMP, CBC #### [facility] [address] [id number] [place] Bilirubin,Urine Negative Normal Negative [facility] Comment on above: Order Comment: Reaso n for Exam Chronic fatigue Performed By: #### T SH3 wRFLX, CMP, CBC #### [facility] [address] [place] [address] [place] Color (U) Yellow Normal Yellow [facility] Comment on above: Order Comment: Reaso n for Exam Chronic fatigue Performed By: #### T SH3 wRFLX, CMP, CBC #### [facility] [address] [id number] [place] Glucose Ql (U) Normal Normal Normal [facility] Comment on above: Order Comment: Reaso n for Exam Chronic fatigue Performed By: #### T SH3 wRFLX, CMP, CBC #### [facility] [address] [id number] [place] Ketones Ql (U) Negative Normal Negative [facility] Comment on above: Order Comment: Reaso n for Exam Chronic fatigue Performed By: #### T SH3 wRFLX, CMP, CBC #### [facility] [address] [id number] [place] Leukocyte esterase Test strip Ql (U) Negative Normal Negative [facility] Comment on above: Order Comment: Reaso n for Exam Chronic fatigue Performed By: #### T SH3 wRFLX, CMP, CBC #### [facility] [address] [id number] [place] Nitrite,Urine Negative Normal Negative [facility] Comment on above: Order Comment: Reaso n for Exam Chronic fatigue Performed By: #### T SH3 wRFLX, CMP, CBC #### [facility] [address] [place] [address] [place] Occult Blood,Urine Negative Normal Negative [facility] Comment on above: Order Comment: Reaso n for Exam Chronic fatigue Result Comment: PERF ORMED BY: [place] [address] PATHOLOGIST VIDEOGAME TESTER MONIK ROJAS M.D. Performed By: #### T SH3 wRFLX, CMP, CBC #### [facility] [address] [place] [address] pH (U) 8.5 [pH] Normal 5.0-9.0 [facility] Comment on above: Order Comment: Reaso n for Exam Chronic fatigue Performed By: #### T SH3 wRFLX, CMP, CBC #### [facility] [address] [place] [address] [place] Protein,Urine Negative Normal Negative [facility] Comment on above: Order Comment: Reaso n for Exam Chronic fatigue Performed By: #### T SH3 wRFLX, CMP, CBC #### [facility] [address] [place] [address] Specificy [place],Urine 1.007 Normal 1.001-1.030 [facility] Comment on above: Order Comment: Reaso n for Exam Chronic fatigue Performed By: #### T SH3 wRFLX, CMP, CBC #### [facility] [address] [place] [address] [place] Urobilinogen,Urine Normal Normal Normal [facility] Comment on above: Order Comment: Reaso n for Exam Chronic fatigue Performed By: #### T SH3 wRFLX, CMP, CBC #### [facility] [address] [place] [address] [place] Urine clarity by refractomet ry automatedOrdered By: Lazarus Liu on 04-19-2023 Clarity Refractometry automated (U) Clear Clear [facility] Urine glucose measurement by automated test strip (mass/volume)Ordered By: Lazarus Liu on 04-19-2023 Glucose Auto test strip (U) [Mass/Vol] Normal mg/dL Normal [facility] Urine hemoglobin detection b y automated test stripOrdered By: Lazarus Liu on 04-19-2023 Hemoglobin Auto test strip Ql (U) Negative Negative [facility] Urine leukocyte esterase det ection by automated test stripOrdered By: Lazarus Liu on 04-19-2023 Leukocyte esterase Auto test strip Ql (U) Negative Negative [facility] Urobilinogen Auto test strip (U) [Mass/Vol]Ordered By: Lazarus Liu on 04-19-2023 Urobilinogen (U) [Mass/Vol] Normal mg/dL Normal [facility] WBC Auto (Bld) [#/Vol]Ordere d By: Lazarus Liu on 04-19-2023 WBC (Bld) [#/Vol] 6.5 10*3/uL 3.8-11.6 [facility] pH Auto test strip (U)Ordere d By: Lazarus Liu on 04-19-2023 pH (U) 8.5 [pH] 5.0-9.0 [facility] MM screening mammo BI w/CADo n 01-13-2023 MM screening mammo BI w/CAD [facility] [place] [address] Mammography Report Signed Patient: Jelena Paez MR#: [id number] : 1940 Acct:[id number] Age/Sex: 82 / F ADM Date: 01/13/23 Loc: [place] Room: Type: [facility] Attending Dr: Referral Self Copies to: SELF,REFERRAL Manuel Gould DO Ordering Provider: SELF,REFERRAL Date of Service: 01/13/23 MM/MM screening mammo BI w/CAD: SCREENING CLINICAL DATA: Screening for malignancy. BILATERAL SCREENING MAMMOGRAMS - FULL FIELD DIGITAL WITH TOMOSYNTHESIS AND CAD Tomosynthesis craniocaudal and mediolateral oblique views of both breasts were obtained using low- dose digital technique. Comparison is made to prior studies from November 22, 2019 through January 09, 2022. This examination was reviewed with the aid of CAD. There are minor residual scattered fibroglandular densities. Benign and vascular calcifications are visualized. There are no developing masses, typically malignant calcifications or architectural distortion. There has been no significant interval change. MM/MM screening mammo BI w/CAD IMPRESSION: NO MAMMOGRAPHIC EVIDENCE OF MALIGNANCY. ROUTINE FOLLOW-UP IS RECOMMENDED IN ONE YEAR. RESULT CODE: 2 Benign Findings(s) DENSITY CODE: 1 (<25% glandular) FOLLOW UP: 1YR The false-negative rate of mammography is approximately 10-percent. Management of a palpable abnormality must be based on clinical grounds. Patient was entered into a reminder system with a target due date for the next mammogram. Impression dictated by: Stacia Chappell M.D.01/13/2023 2:25 PM Dictation Location: [facility] Transcribed By: BRIAN 01/13/231424 Dictated By: Stacia Chappell MD 01/13/231422 Signed By: 01/13/231424 Normal [facility] Alanine aminotransferase [En zymatic activity/volume] in Serum or PlasmaOrdered By: Manuel Gould on 12-16-2022 ALT [Catalytic activity/Vol] 6 U/L 7-52 [facility] Albumin [Mass/volume] in Ser um or Plasma by Bromocresol green (BCG) dye binding methoOrdered By: Manuel Gould on 12-16-2022 Albumin BCG dye [Mass/Vol] 4.3 g/dL 3.5-5.7 [facility] Alkaline phosphatase [Enzyma tic activity/volume] in Serum or PlasmaOrdered By: Manuel Gould on 12-16-2022 ALP [Catalytic activity/Vol] 67 U/L 34-104 [facility] Aspartate aminotransferase [ Enzymatic activity/volume] in Serum or PlasmaOrdered By: Manuel Gould on 12-16-2022 AST [Catalytic activity/Vol] 18 U/L 13-39 [facility] Basophils Auto (Bld) [#/Vol] Ordered By: Manuel Gould on 12-16-2022 Basophils (Bld) [#/Vol] 0.0 10*3/uL 0.0-0.2 [facility] Basophils/100 WBC Auto (Bld) Ordered By: Manuel Gould on 12-16-2022 Basophils/100 WBC (Bld) 0.6 % . [facility] Bilirubin.total [Mass/volume ] in Serum or PlasmaOrdered By: Manuel Gould on 12-16-2022 Bilirubin [Mass/Vol] 0.9 mg/dL 0.3-1.0 [facility] Calcium [Mass/volume] in Ser um or PlasmaOrdered By: Manuel Gould on 12-16-2022 Calcium [Mass/Vol] 9.3 mg/dL 8.6-10.3 [facility] Carbon dioxide, total [Moles /volume] in Serum or PlasmaOrdered By: Manuel Gould on 12-16-2022 CO2 [Moles/Vol] 28.5 mmol/L 21.0-31.0 [facility] Chloride [Moles/volume] in S ebtty or PlasmaOrdered By: Manuel Gould on 12-16-2022 Chloride [Moles/Vol] 106 mmol/L 98-107 [facility] Complete Blood Count Auto Di ffon 12-16-2022 Basophils (Bld) [#/Vol] 0.0 10*3/uL Normal 0.0-0.2 [facility] Comment on above: Order Comment: Reaso n for Exam Chronic fatigue Result Comment: PERF ORMED BY: [place] [id number] PATHOLOGIST VIDEOGAME TESTER MONIK ROJAS M.D. Performed By: #### T SH3 wRFLX, CMP, CBC #### [facility] [address] [place] [address] Basophils/100 WBC (Bld) 0.6 % Normal . [facility] Comment on above: Order Comment: Reaso n for Exam Chronic fatigue Performed By: #### T SH3 wRFLX, CMP, CBC #### [facility] [address] [place] [address] [place] Eosinophils (Bld) [#/Vol] 0.0 10*3/uL Normal 0.0-0.45 [facility] Comment on above: Order Comment: Reaso n for Exam Chronic fatigue Performed By: #### T SH3 wRFLX, CMP, CBC #### [facility] [address] [place] [address] [place] Eosinophils/100 WBC (Bld) 1.0 % Normal . [facility] Comment on above: Order Comment: Reaso n for Exam Chronic fatigue Performed By: #### T SH3 wRFLX, CMP, CBC #### [facility] [address] Erythrocyte distribution width (RBC) [Ratio] 14.6 % Normal 11.9-15.3 [facility] Comment on above: Order Comment: Reaso n for Exam Chronic fatigue Performed By: #### T SH3 wRFLX, CMP, CBC #### [facility] [address] [place] [address] Hematocrit (Bld) [Volume fraction] 38.3 % Normal 34.0-46.4 [facility] Comment on above: Order Comment: Reaso n for Exam Chronic fatigue Performed By: #### T SH3 wRFLX, CMP, CBC #### [address] Hemoglobin (Bld) [Mass/Vol] 12.9 g/dL Normal 11.8-15.4 [facility] Comment on above: Order Comment: Reaso n for Exam Chronic fatigue Performed By: #### T SH3 wRFLX, CMP, CBC #### [address] Lymphocytes (Bld) [#/Vol] 1.3 10*3/uL Normal 1.00-4.8 [facility] Comment on above: Order Comment: Reaso n for Exam Chronic fatigue Performed By: #### T SH3 wRFLX, CMP, CBC #### [address] Lymphocytes/100 WBC (Bld) 27.5 % Normal . [facility] Comment on above: Order Comment: Reaso n for Exam Chronic fatigue Performed By: #### T SH3 wRFLX, CMP, CBC #### [facility] [address] [place] [address] MCH (RBC) [Entitic mass] 32.2 pg Normal 24.7-34.3 [facility] Comment on above: Order Comment: Reaso n for Exam Chronic fatigue Performed By: #### T SH3 wRFLX, CMP, CBC #### [place] [address] [place] MCV (RBC) [Entitic vol] 95.8 fL Normal 80-100 [facility] Comment on above: Order Comment: Reaso n for Exam Chronic fatigue Performed By: #### T SH3 wRFLX, CMP, CBC #### [facility] [address] Mean Corpuscular HGB Conc 33.6 g/dL Normal 32.0-35.0 [facility] Comment on above: Order Comment: Reaso n for Exam Chronic fatigue Performed By: #### T SH3 wRFLX, CMP, CBC #### [facility] [address] [place] [address] [place] Monocytes (Bld) [#/Vol] 0.4 10*3/uL Normal 0.0-0.8 [facility] Comment on above: Order Comment: Reaso n for Exam Chronic fatigue Performed By: #### T SH3 wRFLX, CMP, CBC #### [facility] [address] [place] [address] [place] Monocytes/100 WBC (Bld) 7.6 % Normal . [facility] Comment on above: Order Comment: Reaso n for Exam Chronic fatigue Performed By: #### T SH3 wRFLX, CMP, CBC #### [facility] [address] [place] [address] [place] Neutrophils (Bld) [#/Vol] 3.0 10*3/uL Normal 1.8-7.7 [facility] Comment on above: Order Comment: Reaso n for Exam Chronic fatigue Performed By: #### T SH3 wRFLX, CMP, CBC #### [facility] [address] [place] [address] [place] Neutrophils/100 WBC (Bld) 63.3 % Normal . [facility] Comment on above: Order Comment: Reaso n for Exam Chronic fatigue Performed By: #### T SH3 wRFLX, CMP, CBC #### [facility] [address] [place] [address] [place] NRBC% 0.1 /100{WBC} Normal 0-0.5 [facility] Comment on above: Order Comment: Reaso n for Exam Chronic fatigue Performed By: #### T SH3 wRFLX, CMP, CBC #### [facility] [address] Platelet mean volume (Bld) [Entitic vol] 8.8 fL Normal 6.3-10.7 [facility] Comment on above: Order Comment: Reaso n for Exam Chronic fatigue Performed By: #### T SH3 wRFLX, CMP, CBC #### [facility] [address] Platelets (Bld) [#/Vol] 223 10*3/uL Normal 150-450 [facility] Comment on above: Order Comment: Reaso n for Exam Chronic fatigue Performed By: #### T SH3 wRFLX, CMP, CBC #### [facility] [address] RBC (Bld) [#/Vol] 4.00 10*6/uL Normal 3.60-5.00 [facility] Comment on above: Order Comment: Reaso n for Exam Chronic fatigue Performed By: #### T SH3 wRFLX, CMP, CBC #### [facility] [address] WBC (Bld) [#/Vol] 4.8 10*3/uL Normal 3.8-11.6 [facility] Comment on above: Order Comment: Reaso n for Exam Chronic fatigue Performed By: #### T SH3 wRFLX, CMP, CBC #### [facility] [address] Comprehensive Metabolic Pane marcelle 12-16-2022 Albumin [Mass/Vol] 4.3 g/dL Normal 3.5-5.7 [facility] Comment on above: Order Comment: Reaso n for Exam Chronic fatigue Performed By: #### T SH3 wRFLX, CMP, CBC #### [facility] [address] Albumin/Globulin [Mass ratio] 1.7 {ratio} Normal [facility] Comment on above: Order Comment: Reaso n for Exam Chronic fatigue Performed By: #### T SH3 wRFLX, CMP, CBC #### [facility] [address] [place] [id number] [facility] ALP [Catalytic activity/Vol] 67 U/L Normal 34-104 [facility] Comment on above: Order Comment: Reaso n for Exam Chronic fatigue Performed By: #### T SH3 wRFLX, CMP, CBC #### [facility] [address] ALT [Catalytic activity/Vol] 6 U/L Low 7-52 [facility] Comment on above: Order Comment: Reaso n for Exam Chronic fatigue Performed By: #### T SH3 wRFLX, CMP, CBC #### [facility] [address] Anion gap [Moles/Vol] 7.4 mmol/L Normal 6.0-15.0 [facility] Comment on above: Order Comment: Reaso n for Exam Chronic fatigue Performed By: #### T SH3 wRFLX, CMP, CBC #### [facility] [address] AST [Catalytic activity/Vol] 18 U/L Normal 13-39 [facility] Comment on above: Order Comment: Reaso n for Exam Chronic fatigue Performed By: #### T SH3 wRFLX, CMP, CBC #### [facility] [address] Bilirubin [Mass/Vol] 0.9 mg/dL Normal 0.3-1.0 [facility] Comment on above: Order Comment: Reaso n for Exam Chronic fatigue Performed By: #### T SH3 wRFLX, CMP, CBC #### [facility] [address] Calcium [Mass/Vol] 9.3 mg/dL Normal 8.6-10.3 [facility] Comment on above: Order Comment: Reaso n for Exam Chronic fatigue Performed By: #### T SH3 wRFLX, CMP, CBC #### [facility] [address] [place] [address] [place] Chloride [Moles/Vol] 106 mmol/L Normal 98-107 [facility] Comment on above: Order Comment: Reaso n for Exam Chronic fatigue Performed By: #### T SH3 wRFLX, CMP, CBC #### [facility] [address] [place] [id number] [place] CO2 [Moles/Vol] 28.5 mmol/L Normal 21.0-31.0 [facility] Comment on above: Order Comment: Reaso n for Exam Chronic fatigue Performed By: #### T SH3 wRFLX, CMP, CBC #### [facility] [address] [place] [id number] [place] Creatinine [Mass/Vol] 0.88 mg/dL Normal 0.60-1.20 [facility] Comment on above: Order Comment: Reaso n for Exam Chronic fatigue Performed By: #### T SH3 OsirisFLX, CMP, CBC #### [facility] [address] [place] [address] [place] GFR/1.73 sq M.predicted MDRD (S/P/Bld) [Vol rate/Area] mL/min/{1.73_m2} [facility] Comment on above: Order Comment: Reaso n for Exam Chronic fatigue Performed By: #### T SH3 OsirisFLX, CMP, CBC #### [facility] [address] [place] [id number] [place] Globulin (S) [Mass/Vol] 2.6 g/dL [facility] Comment on above: Order Comment: Reaso n for Exam Chronic fatigue Performed By: #### T SH3 CristinaX, CMP, CBC #### [facility] [address] [place] [id number] [place] Glucose [Mass/Vol] 109 mg/dL High 70-100 [facility] Comment on above: Order Comment: Reaso n for Exam Chronic fatigue Result Comment: [place] Glucose Reference Range is dependent on time and content of last meal. Glucose of more than 200 mg/dL in a nonstressed, ambulatory subject supports the diagnosis of Diabetes Mellitus. ADA recommended reference range Performed By: #### T SH3 wRFLX, CMP, CBC #### [facility] [address] [place] [id number] [place] Potassium [Moles/Vol] 3.9 mmol/L Normal 3.5-5.1 [facility] Comment on above: Order Comment: Reaso n for Exam Chronic fatigue Performed By: #### T SH3 wRFLX, CMP, CBC #### [facility] [address] [place] [address] [place] Protein [Mass/Vol] 6.9 g/dL Normal 6.4-8.9 [facility] Comment on above: Order Comment: Reaso n for Exam Chronic fatigue Performed By: #### T SH3 wRFLX, CMP, CBC #### [facility] [address] [place] [address] [place] Sodium [Moles/Vol] 138 mmol/L Normal 136-145 [facility] Comment on above: Order Comment: Reaso n for Exam Chronic fatigue Performed By: #### T SH3 wRFLX, CMP, CBC #### [facility] [address] Urea nitrogen [Mass/Vol] 14 mg/dL Normal 7-25 [facility] Comment on above: Order Comment: Reaso n for Exam Chronic fatigue Performed By: #### T SH3 wRFLX, CMP, CBC #### [facility] [address] Creatinine [Mass/volume] in Serum or PlasmaOrdered By: Manuel Gould on 12-16-2022 Creatinine [Mass/Vol] 0.88 mg/dL 0.60-1.20 [facility] Eosinophils Auto (Bld) [#/Vo l]Ordered By: Manuel Gould on 12-16-2022 Eosinophils (Bld) [#/Vol] 0.0 10*3/uL 0.0-0.45 [facility] Eosinophils/100 WBC Auto (Bl d)Ordered By: Manuel Gould on 12-16-2022 Eosinophils/100 WBC (Bld) 1.0 % . [facility] Erythrocyte distribution wid th Auto (RBC) [Ratio]Ordered By: Manuel Gould on 12-16-2022 Erythrocyte distribution width (RBC) [Ratio] 14.6 % 11.9-15.3 [facility] Globulin Calc (S) [Mass/Vol] Ordered By: Manuel Gould on 12-16-2022 Globulin (S) [Mass/Vol] 2.6 g/dL [facility] Glucose [Mass/volume] in Ser um or PlasmaOrdered By: Manuel Gould on 12-16-2022 Glucose [Mass/Vol] 109 mg/dL 70-100 [facility] Comment on above: ADA recommended refe rence rangeRandom Glucose Reference Range is dependent on time and content of last meal. Glucose of more than 200 mg/dL in a nonstressed, ambulatory subject supports the diagnosis of Diabetes Mellitus. Hematocrit Auto (Bld) [Volum e fraction]Ordered By: Manuel Gould on 12-16-2022 Hematocrit (Bld) [Volume fraction] 38.3 % 34.0-46.4 [facility] Hemoglobin [Mass/volume] in BloodOrdered By: Manuel Gould on 12-16-2022 Hemoglobin (Bld) [Mass/Vol] 12.9 g/dL 11.8-15.4 [facility] Leukocytes [#/volume] correc gerhard for nucleated erythrocytes in Blood by Automated counOrdered By: Manuel Gould on 12-16-2022 WBC corrected for nucl RBC Auto (Bld) [#/Vol] 4.8 10*3/uL 3.8-11.6 [facility] Lymphocytes Auto (Bld) [#/Vo l]Ordered By: Manuel Gould on 12-16-2022 Lymphocytes (Bld) [#/Vol] 1.3 10*3/uL 1.00-4.8 [facility] Lymphocytes/100 WBC Auto (Bl d)Ordered By: Manuel Gould on 12-16-2022 Lymphocytes/100 WBC (Bld) 27.5 % . [facility] MCH Auto (RBC) [Entitic mass ]Ordered By: Manuel Gould on 12-16-2022 MCH (RBC) [Entitic mass] 32.2 pg 24.7-34.3 [facility] MCHC Auto (RBC) [Mass/Vol]Or dered By: Manuel Gould on 12-16-2022 MCHC (RBC) [Mass/Vol] 33.6 g/dL 32.0-35.0 [facility] MCV Auto (RBC) [Entitic vol] Ordered By: Manuel Gould on 12-16-2022 MCV (RBC) [Entitic vol] 95.8 fL 80-100 [facility] Monocytes Auto (Bld) [#/Vol] Ordered By: Manuel Gould on 12-16-2022 Monocytes (Bld) [#/Vol] 0.4 10*3/uL 0.0-0.8 [facility] Monocytes/100 WBC Auto (Bld) Ordered By: Manuel Gould on 12-16-2022 Monocytes/100 WBC (Bld) 7.6 % . [facility] Neutrophils Auto (Bld) [#/Vo l]Ordered By: Manuel Gould on 12-16-2022 Neutrophils (Bld) [#/Vol] 3.0 10*3/uL 1.8-7.7 [facility] Neutrophils/100 WBC Auto (Bl d)Ordered By: Manuel Gould on 12-16-2022 Neutrophils/100 WBC (Bld) 63.3 % . [facility] No Panel InformationOrdered By: Manuel Gould on 12-16-2022 Estimated GFR (CKD-EPI) > 60.0 mL/Min [facility] Creatinine Clearance (Chem N/A [facility] Nucleated erythrocytes [Pres ence] in Blood by Automated countOrdered By: Manuel Gould on 12-16-2022 Nucleated RBC Auto Ql (Bld) 0.1 /100{WBC} 0-0.5 [facility] Platelet mean volume Auto (B ld) [Entitic vol]Ordered By: Manuel Gould on 12-16-2022 Platelet mean volume (Bld) [Entitic vol] 8.8 fL 6.3-10.7 [facility] Platelets Auto (Bld) [#/Vol] Ordered By: Manuel Gould on 12-16-2022 Platelets (Bld) [#/Vol] 223 10*3/uL 150-450 [facility] Potassium [Moles/volume] in Serum or PlasmaOrdered By: Manuel Gould on 12-16-2022 Potassium [Moles/Vol] 3.9 mmol/L 3.5-5.1 [facility] Protein [Mass/volume] in Ser um or PlasmaOrdered By: Manuel Gould on 12-16-2022 Protein [Mass/Vol] 6.9 g/dL 6.4-8.9 [facility] RBC Auto (Bld) [#/Vol]Ordere d By: Manuel Gould on 12-16-2022 RBC (Bld) [#/Vol] 4.00 10*6/uL 3.60-5.00 [facility] Serum or plasma albumin/glob ulin mass ratioOrdered By: Manuel Gould on 12-16-2022 Albumin/Globulin [Mass ratio] 1.7 {ratio} [facility] Serum or plasma anion gap de terminationOrdered By: Manuel Gould on 12-16-2022 Anion gap [Moles/Vol] 7.4 mmol/L 6.0-15.0 [facility] Sodium [Moles/volume] in Ser um or PlasmaOrdered By: Manuel Gould on 12-16-2022 Sodium [Moles/Vol] 138 mmol/L 136-145 [facility] Thyroid Stim Hormone w/Rflxo n 12-16-2022 Thyroid Stim Hormone w/Rflx 2.88 u[iU]/mL Normal 0.45-5.33 [facility] Comment on above: Order Comment: Reaso n for Exam Chronic fatigue Result Comment: PERF ORMED BY: [place] [id number] PATHOLOGIST [employer] MONIK ROJAS M.D. Performed By: #### T SH3 wRFLX, CMP, CBC #### [address] Thyrotropin [Units/volume] i n Serum or PlasmaOrdered By: Manuel Gould on 12-16-2022 TSH Qn 2.88 m[IU]/L 0.45-5.33 [facility] Urea nitrogen [Mass/volume] in Serum or PlasmaOrdered By: Manuel Gould on 12-16-2022 Urea nitrogen [Mass/Vol] 14 mg/dL 10-15 [facility] WBC Auto (Bld) [#/Vol]Ordere d By: Manuel Gould on 12-16-2022 WBC (Bld) [#/Vol] 4.8 10*3/uL 3.8-11.6 [facility] Albumin [Mass/volume] in Ser um or PlasmaOrdered By: Manuel Gould on 12-13-2021 Albumin [Mass/Vol] 3.9 g/dL 3.2-5.5 [facility] Basophils Auto (Bld) [#/Vol] Ordered By: Manuel Gould on 12-13-2021 Basophils (Bld) [#/Vol] 0.0 10*3/uL 0.0-0.2 [facility] Basophils/100 WBC Auto (Bld) Ordered By: Manuel Gould on 12-13-2021 Basophils/100 WBC (Bld) 0.6 % . [facility] Blood hemoglobin measurement (mass/volume)Ordered By: Manuel Gould on 12-13-2021 Hemoglobin (Bld) [Mass/Vol] 12.8 g/dL 11.8-15.4 [facility] Blood leukocytes automated c ount (number/volume)Ordered By: Manuel Gould on 12-13-2021 WBC (Bld) [#/Vol] 4.3 10*3/uL 4.5-11.0 [facility] Cholesterol [Mass/volume] in Serum or PlasmaOrdered By: Manuel Gould on 12-13-2021 Cholesterol [Mass/Vol] 243 mg/dL 140-200 [facility] Comment on above: Chol less than 200 m g/dl low risk Chol 201-239 mg/dl borderline risk Chol 240 mg/dl and greater high risk Chol less than 200 m g/dl low riskChol 201-239 mg/dl borderline riskChol 240 mg/dl and greater high risk Cholesterol in LDL Calc [Mas s/Vol]Ordered By: Manuel Gould on 12-13-2021 Cholesterol in LDL [Mass/Vol] 164 mg/dL 0-100 [facility] Comment on above: LDL ATP III CLASSIFI CATION LDL less than 100 mg/dL Optimal LDL 100-129 mg/dL Near or above optimal LDL 130-159 mg/dL Borderline high LDL 160-189 mg/dL High LDL greater than 189 mg/dL Very high LDL ATP III CLASSIFI CATIONLDL less than 100 mg/dL OptimalLDL 100-129 mg/dL Near or above optimalLDL 130-159 mg/dL Borderline highLDL 160-189 mg/dL HighLDL greater than 189 mg/dL Very high Cholesterol in VLDL Calc [Ma ss/Vol]Ordered By: Manuel Gould on 12-13-2021 Cholesterol in VLDL [Mass/Vol] 27 mg/dL [facility] Creatinine and Glomerular fi ltration rate.predicted panel (S/P/Bld)Ordered By: Manuel Gould on 12-13-2021 Creatinine [Mass/Vol] 0.92 mg/dL 0.44-1.03 [facility] Eosinophils Auto (Bld) [#/Vo l]Ordered By: Manuel Gould on 12-13-2021 Eosinophils (Bld) [#/Vol] 0.0 10*3/uL 0.0-0.45 [facility] Eosinophils/100 WBC Auto (Bl d)Ordered By: Manuel Gould on 12-13-2021 Eosinophils/100 WBC (Bld) 1.1 % . [facility] Erythrocyte distribution wid th Auto (RBC) [Ratio]Ordered By: Manuel Gould on 12-13-2021 Erythrocyte distribution width (RBC) [Ratio] 13.8 % 11.9-15.3 [facility] Estimated glomerular filtrat ion rate (GFR) non- AmericanOrdered By: Manuel Gould on 12-13-2021 GFR/1.73 sq M.predicted among non-blacks MDRD (S/P/Bld) [Vol rate/Area] 59 mL/Min [facility] Globulin Calc (S) [Mass/Vol] Ordered By: Manuel Gould on 12-13-2021 Globulin (S) [Mass/Vol] 2.9 g/dL [facility] Hematocrit Auto (Bld) [Volum e fraction]Ordered By: Manuel Gould on 12-13-2021 Hematocrit (Bld) [Volume fraction] 38.8 % 34.0-46.4 [facility] Laboratory - Hematology and Cell countsOrdered By: Manuel Gould on 12-13-2021 Nucleated RBC/100 WBC (Bld) [Ratio] 0.2 % 0-0.5 [facility] Lymphocytes Auto (Bld) [#/Vo l]Ordered By: Manuel Gould on 12-13-2021 Lymphocytes (Bld) [#/Vol] 1.3 10*3/uL 1.00-4.8 [facility] Lymphocytes/100 WBC Auto (Bl d)Ordered By: Manuel Gould on 12-13-2021 Lymphocytes/100 WBC (Bld) 30.9 % . [facility] MCH Auto (RBC) [Entitic mass ]Ordered By: Manuel Gould on 12-13-2021 MCH (RBC) [Entitic mass] 32.1 pg 24.7-34.3 [facility] MCHC Auto (RBC) [Mass/Vol]Or dered By: Manuel Gould on 12-13-2021 MCHC (RBC) [Mass/Vol] 33.0 g/dL 32.0-35.0 [facility] MCV Auto (RBC) [Entitic vol] Ordered By: Manuel Gould on 12-13-2021 MCV (RBC) [Entitic vol] 97.3 fL 80-100 [facility] Monocytes Auto (Bld) [#/Vol] Ordered By: Manuel Gould on 12-13-2021 Monocytes (Bld) [#/Vol] 0.3 10*3/uL 0.0-0.8 [facility] Monocytes/100 WBC Auto (Bld) Ordered By: Manuel Gould on 12-13-2021 Monocytes/100 WBC (Bld) 7.7 % . [facility] Neutrophils Auto (Bld) [#/Vo l]Ordered By: Manuel Gould on 12-13-2021 Neutrophils (Bld) [#/Vol] 2.6 10*3/uL 1.8-7.7 [facility] Neutrophils/100 WBC Auto (Bl d)Ordered By: Manuel Gould on 12-13-2021 Neutrophils/100 WBC (Bld) 59.7 % . [facility] No Panel InformationOrdered By: Manuel Gould on 12-13-2021 25-Hydroxy Vitamin D Total 73.3 ng/mL 30-100 [facility] Comment on above: VITAMIN D STATUS 25( [place])VITAMIN D RANGE (ng/mL) Deficient <20 Insufficient 20 to <30 Sufficient 30 to 100 Reference: Shamika MF,Bill NC, Kavitha GRAHAM, et al. Evaluation,treatment, and prevention of vitamin D deficiency; an Endocrine Society clinical practice guideline. JCEM. 2010; 96(7):1911-30. VITAMIN D STATUS 25( [place])VITAMIN D RANGE (ng/mL) Deficient <20 Insufficient 20 to <30Sufficient 30 to 100Reference: Shamika MF,Bill NC, Kavitha GRAHAM, et al. Evaluation,treatment, and prevention of vitamin D deficiency; an Endocrine Society clinical practice guideline. JCEM. 2010; 96(7):1911-30. Estimated GFR () > 60 mL/Min [facility] Comment on above: GFR estimated refere nce range: According to KDOQI guidelines, <60 ml/min/1.73m2 is sufficient to diagnose a patient with chronic kidney disease. Pharmacy Creatinine Clearance (Chem N/A [facility] Platelet mean volume Auto (B ld) [Entitic vol]Ordered By: Manuel Gould on 12-13-2021 Platelet mean volume (Bld) [Entitic vol] 9.5 fL 6.3-10.7 [facility] Platelets Auto (Bld) [#/Vol] Ordered By: Manuel Gould on 12-13-2021 Platelets (Bld) [#/Vol] 261 10*3/uL 150-450 [facility] Protein [Mass/volume] in Ser um or PlasmaOrdered By: Manuel Gould on 12-13-2021 Protein [Mass/Vol] 6.8 g/dL 6.1-7.9 [facility] RBC Auto (Bld) [#/Vol]Ordere d By: Manuel Gould on 12-13-2021 RBC (Bld) [#/Vol] 3.99 10*6/uL 3.60-5.00 [facility] Serum or plasma alanine jiménez otransferase measurement without P-5'-P (enzymatic activiOrdered By: Manuel Gould on 12-13-2021 ALT No additional P-5'-P [Catalytic activity/Vol] 10 U/L 10-60 [facility] Serum or plasma albumin/glob ulin mass ratioOrdered By: Manuel Gould on 12-13-2021 Albumin/Globulin [Mass ratio] 1.3 {ratio} [facility] Serum or plasma alkaline cas sphatase measurement (enzymatic activity/volume)Ordered By: Manuel Gould on 12-13-2021 ALP [Catalytic activity/Vol] 69 U/L 32-92 [facility] Serum or plasma anion gap de terminationOrdered By: Manuel Gould on 12-13-2021 Anion gap [Moles/Vol] 13.2 mmol/L 6.0-15.0 [facility] Serum or plasma aspartate am inotransferase measurement (enzymatic activity/volume)Ordered By: Manuel Gould on 12-13-2021 AST [Catalytic activity/Vol] 24 U/L 10-42 [facility] Serum or plasma calcium mehul urement (mass/volume)Ordered By: Manuel Gould on 12-13-2021 Calcium [Mass/Vol] 9.5 mg/dL 8.2-10.2 [facility] Serum or plasma chloride lauren surement (moles/volume)Ordered By: Manuel Gould on 12-13-2021 Chloride [Moles/Vol] 104 mmol/L 95-114 [facility] Serum or plasma glucose mehul urement (mass/volume)Ordered By: Manuel Gould on 12-13-2021 Glucose [Mass/Vol] 96 mg/dL 70-100 [facility] Comment on above: ADA recommended refe rence range Random Glucose Reference Range is dependent on time and content of last meal. Glucose of more than 200 mg/dL in a nonstressed, ambulatory subject supports the diagnosis of Diabetes Mellitus. ADA recommended refe rence rangeRandom Glucose Reference Range is dependent on time and content of last meal. Glucose of more than 200 mg/dL in a nonstressed, ambulatory subject supports the diagnosis of Diabetes Mellitus. Serum or plasma high density lipoprotein (HDL) cholesterol measurementOrdered By: Manuel Gould on 12-13-2021 Cholesterol in HDL [Mass/Vol] 52 mg/dL 35-85 [facility] Comment on above: HDL CHOL ATP-III CLA SSIFICATION Cardiovascular Risk HDL > or equal to 60 mg/dL LOW HDL < 40 mg/dL HIGH HDL CHOL ATP-III CLA SSIFICATION Cardiovascular RiskHDL > or equal to 60 mg/dL LOWHDL < 40 mg/dL HIGH Serum or plasma potassium me asurement (moles/volume)Ordered By: Manuel Gould on 12-13-2021 Potassium [Moles/Vol] 4.2 mmol/L 3.5-5.1 [facility] Serum or plasma sodium measu rement (moles/volume)Ordered By: Manuel Gould on 12-13-2021 Sodium [Moles/Vol] 138 mmol/L 136-146 [facility] Serum or plasma total biliru bin measurement (mass/volume)Ordered By: Manuel Gould on 12-13-2021 Bilirubin [Mass/Vol] 0.9 mg/dL 0.3-1.2 [facility] Serum or plasma total carbon dioxide measurement (moles/volume)Ordered By: Manuel Gould on 12-13-2021 CO2 [Moles/Vol] 25.0 mmol/L 22.0-30.0 [facility] Serum or plasma total choles terol/high density lipoprotein (HDL) cholesterol mass ratOrdered By: Manuel Gould on 12-13-2021 Cholesterol.total/Chol esterol in HDL [Mass ratio] 4.7 {ratio} <5.0 [facility] Serum or plasma urea nitroge n measurement (mass/volume)Ordered By: Manuel Gould on 12-13-2021 Urea nitrogen [Mass/Vol] 12 mg/dL - [facility] TSH DL <= 0.005 mIU/L QnOrde red By: Manuel Gould on 12-13-2021 TSH Qn 2.52 m[IU]/L 0.45-5.33 [facility] Triglyceride [Mass/volume] i n Serum or PlasmaOrdered By: Manuel Gould on 12-13-2021 Triglyceride [Mass/Vol] 137 mg/dL 35-149 [facility] Comment on above: TRIG ATP III CLASSIF ICATION TRIG less than 150 mg/dL Normal TRIG 150-199 mg/dL Borderline high TRIG 200-500 mg/dL High TRIG greater than 500 mg/dL Very high Standard traceable to the Center for Disease Conrtrol and Prevention (CDC) test method. TRIG ATP III CLASSIF ICATIONTRIG less than 150 mg/dL NormalTRIG 150-199 mg/dL Borderline highTRIG 200-500 mg/dL High TRIG greater than 500 mg/dL Very highStandard traceable to the Center for Disease Conrtrol and Prevention (CDC) test method. Vital Signs Date Time Vital Sign Value Performing Clinician Facility 04-22-2023 09:45-0500 Body height 152.4 cm Manuel Gould Other [facility] Other 04-22-2023 09:45-0500 Body mass index (BMI) [Ratio] 22.26 kg/m2 Manuel Gould Other [facility] Other 04-22-2023 09:45-0500 Body temperature 98.2 [degF] Manuel Gould Other [facility] Other 04-22-2023 09:45-0500 Body weight 51.71 kg Manuel Gould Other [facility] Other 04-22-2023 09:45-0500 Diastolic blood pressure 84 mm[Hg] Manuel Gould Other [facility] Other 04-22-2023 09:45-0500 Respiratory rate 18 /min Manuel Gould Other [facility] Other 04-22-2023 09:45-0500 SaO2% (BldA) [Mass fraction] 98 % Manuel Gould Other [facility] Other 04-22-2023 09:45-0500 Systolic blood pressure 136 mm[Hg] Manuel Gould Other [facility] Other 04-19-2023 15:15-0500 Diastolic blood pressure 90 mm[Hg] DO Lazarus Alexa Work Phone: [facility] 04-19-2023 15:15-0500 Heart rate 61 /min DO Lazarus Alexa Work Phone: [facility] 04-19-2023 15:15-0500 Respiratory rate 24 /min DO Lazarus Alexa Work Phone: [facility] 04-19-2023 15:15-0500 SaO2% (BldA) [Mass fraction] 98 % DO Lazarus Alexa Work Phone: [facility] 04-19-2023 15:15-0500 Systolic blood pressure 196 mm[Hg] DO Lazarus Alexa Work Phone: [facility] 04-19-2023 13:00-0500 Body temperature 98.1 [degF] DO Lazarus Alexa Work Phone: [facility] 04-19-2023 12:52-0500 Body height 152.4 cm DO Lazarus Alexa Work Phone: [facility] 04-19-2023 12:52-0500 Body weight 51.8 kg DO Lazarus Alexa Work Phone: [facility] 12-11-2022 14:30-0400 Body height 152.4 cm Manuel Gould Other [facility] Other 12-11-2022 14:30-0400 Body mass index (BMI) [Ratio] 22.01 kg/m2 Manuel Gould Other [facility] Other 12-11-2022 14:30-0400 Body temperature 97.6 [degF] Manuel Gould Other [facility] Other 12-11-2022 14:30-0400 Body weight 51.12 kg Manuel Gould Other [facility] [employer] Other 12-11-2022 14:30-0400 Diastolic blood pressure 72 mm[Hg] Manuel Gould Other [employer] Other 12-11-2022 14:30-0400 Respiratory rate 18 /min Manuel Gould Other [employer] Other 12-11-2022 14:30-0400 SaO2% (BldA) [Mass fraction] 99 % Manuel Gould Other [employer] Other 12-11-2022 14:30-0400 Systolic blood pressure 120 mm[Hg] Manuel Gould Other [employer] Other 07-15-2022 15:15-0400 Body height 152.4 cm Manuel Gould Other [employer] Other 07-15-2022 15:15-0400 Body mass index (BMI) [Ratio] 22.65 kg/m2 Manuel Gould Other [employer] Other 07-15-2022 15:15-0400 Body weight 52.62 kg Manuel Gould Other [employer] Other 07-15-2022 15:15-0400 Diastolic blood pressure 80 mm[Hg] Manuel Gould Other [employer] Other 07-15-2022 15:15-0400 Respiratory rate 18 /min Manuel Gould Other [employer] Other 07-15-2022 15:15-0400 SaO2% (BldA) [Mass fraction] 96 % Manuel Gould Other [employer] Other 07-15-2022 15:15-0400 Systolic blood pressure 132 mm[Hg] Manuel Gould Other [employer] Other 12-13-2021 14:15-0400 Body height 152.4 cm Manuel Gould Other [employer] Other 12-13-2021 14:15-0400 Body mass index (BMI) [Ratio] 22.65 kg/m2 Manuel Gould Other [employer] Other 12-13-2021 14:15-0400 Body weight 52.62 kg Manuel Gould Other [employer] Other 12-13-2021 14:15-0400 Diastolic blood pressure 84 mm[Hg] Manuel Gould Other [employer] Other 12-13-2021 14:15-0400 Respiratory rate 18 /min Manuel Gould Other [employer] Other 12-13-2021 14:15-0400 SaO2% (BldA) [Mass fraction] 97 % Manuel Gould Other [employer] Other 12-13-2021 14:15-0400 Systolic blood pressure 142 mm[Hg] Manuel Gould Other [employer] Other 06-12-2021 15:30-0400 Body height 152.4 cm Manuel Gould Other [employer] Other 06-12-2021 15:30-0400 Body mass index (BMI) [Ratio] 23.96 kg/m2 Manuel Gould Other [employer] Other 06-12-2021 15:30-0400 Body temperature 97.2 [degF] Manuel Gould Other [employer] Other 06-12-2021 15:30-0400 Body weight 55.66 kg Manuel Gould Other [employer] Other 06-12-2021 15:30-0400 Diastolic blood pressure 88 mm[Hg] Manuel Gould Other [employer] Other 06-12-2021 15:30-0400 Respiratory rate 18 /min Manuel Gould Other [employer] Other 06-12-2021 15:30-0400 SaO2% (BldA) [Mass fraction] 98 % Manuel Gould Other [employer] Other 06-12-2021 15:30-0400 Systolic blood pressure 130 mm[Hg] Manuel Gould Other [employer] Other Encounters Encounter Date Encounter Type Care Provider Facility Start: 04-23-2023 End: 04-23-2023 ambulatory Manuel Gould Other [employer] Other Start: 04-23-2023 Telephone encounter [facility] Start: 04-22-2023 End: 04-22-2023 ambulatory aMnuel Gould Other [employer] Other Start: 04-22-2023 Office outpatient visit 15 minutes Manuel [facility] Start: 04-21-2023 End: 04-21-2023 ambulatory Manuel Gould Other [employer] Other Start: 04-21-2023 Telephone encounter Manuel [facility] Start: 04-19-2023 End: 04-19-2023 Emergency department patient visit Manuel Gould Facility:[facility] Start: 04-19-2023 End: 04-19-2023 Emergency department patient visit DO Lazarus Liu Work Phone: [facility] Work Phone: Start: 01-13-2023 End: 01-13-2023 ambulatory Manuel Quan Gould Facility:[facility] Start: 01-13-2023 End: 01-13-2023 ambulatory DO Manuel Gould Work Phone: [facility] Work Phone: Start: 01-13-2023 End: 01-13-2023 Patient encounter procedure DO Manuel Gould Work Phone: [facility] Work Phone: Start: 12-25-2022 End: 12-25-2022 ambulatory Rubens Bellamy Other [employer] Other Start: 12-25-2022 Telephone encounter Rubens Dave [facility] Start: 12-16-2022 End: 12-16-2022 ambulatory Manuel Quan Gould Facility:[facility] Start: 12-16-2022 End: 12-16-2022 ambulatory DO Manuel Gould Work Phone: [facility] Work Phone: Start: 12-16-2022 End: 12-16-2022 Patient encounter procedure DO Manuel Gould Work Phone: [facility] [place] Work Phone: Start: 12-11-2022 End: 12-11-2022 ambulatory Manuel Gould Other [employer] Other Start: 12-11-2022 Patient encounter procedure Manuel Gould [facility] Start: 07-15-2022 End: 07-15-2022 ambulatory Manuel Gould Other [employer] Other Start: 07-15-2022 Office outpatient visit 15 minutes Manuel Gould [facility] Start: 01-16-2022 End: 01-16-2022 ambulatory Manuel Gould Other [employer] Other Start: 01-16-2022 Telephone encounter Manuel [facility] Start: 01-09-2022 End: 01-09-2022 ambulatory DO Manuel Gould Work Phone: [facility] Work Phone: Start: 01-09-2022 End: 01-09-2022 Patient encounter procedure DO Manuel Gould Work Phone: [facility] Start: 12-13-2021 End: 12-13-2021 ambulatory Manuel Gould Other [employer] Other Start: 12-13-2021 Office outpatient visit 15 minutes Manuel Gould [facility] Start: 12-13-2021 End: 12-13-2021 Patient encounter procedure DO Manuel Gould Work Phone: [facility] Start: 06-12-2021 End: 06-12-2021 ambulatory Manuel Gould Other [employer] Other Start: 06-12-2021 Office outpatient visit 15 minutes Manuel Gould [facility] Procedures Date Procedure Procedure Detail Performing Clinician Start: 04-19-2023 Computed tomography of abdomen and pelvis with contrast DO Lazarus Liu Work Phone: Start: 01-13-2023 Screening mammograph y of bilateral breasts DO Manuel Gould Work Phone: Start: 01-09-2022 Dual energy X-ray absorptiometry DO Manuel Gould Work Phone: Start: 01-09-2022 Screening mammograph y of bilateral breasts DO Manuel Gould Work Phone: Plan of Treatment Date Care Activity Detail Author Patient Education Abdominal pain [facility] Work Phone: Patient referral [facility] Work Phone: Immunizations Immunization Date Immunization Notes Care Provider Mikala chrishans 12-11-2022 influenza, high dose seasonal, preservative-free Manuel Gould Other [employer] Other 02-11-2022 influenza, seasonal, injectable Manuel Gould Other [employer] Other 02-11-2022 COVID-19 Pfizer (bivalent) Manuel Gould Other [employer] Other 07-20-2020 COVID-19 Vaccine Pfi zer - Documentation Purposes Only Manuel Gould Other [employer] Other 06-29-2020 COVID-19 Vaccine Pfi zer - Documentation Purposes Only Manuel Gould Other [employer] Other 01-05-2019 influenza, seasonal, injectable Manuel Gould Other [employer] Other 06-03-2017 pneumococcal conjuga te vaccine, 13 valent Manuel Gould Other [employer] Other 12-04-2016 influenza, high dose seasonal, preservative-free Manuel Gould Other [employer] Other 11-27-2015 influenza, high dose seasonal, preservative-free Manuel Gould Other [employer] Other 04-16-2013 pneumococcal polysaccharide vaccine, 23 valent Manuel Gould Other [employer] Other 01-11-2013 influenza, injectabl e, quadrivalent, contains preservative Manuel Gould Other [employer] Other Payers Date Payer Category Payer Private Health Insurance [id number] 2022 Self-pay [id number] 2022 Medicare [id number] [id number] [id number] Medicare [id number] 2. [id number] Unknown [id number] Unknown [id number] Unknown [id number] Social History Date Type Detail Facility Sex Assigned At [facility] [employer] Other Start: 10-08-2019 End: 04-19-2023 Tobacco smoking status NHIS Never smoked tobacco (finding) [facility] Start: 1940 Sex Assigned At Female F [facility] Clinical Notes 06-12-2021 to 04-23-2023 Note Date & Type Note Facility 04-23-2023 Evaluation note Encounter Date Diagnosis Assessment Notes Mar, Abdominal wall hernia (ICD-10 - K43.9) [facility] [employer] [facility] Other 01-30-2024 Evaluation note* Encounter Date Diagnosis Assessment Notes Treatment Notes Treatment Clinical Notes Mar, Diverticulosis (ICD-10 - K57.90) At this point, the most likely cause of her pain episodes could be diverticular pain. At this time she is feeling great. I advised her to try 1 scoop of Metamucil and a glass of water every day to try to reduce the frequency of these episodes [facility] [employer] Other 09-20-2023 Evaluation note* Encounter Date Diagnosis Assessment Notes Treatment Notes Treatment Clinical Notes Nov, Medicare annual wellness visit, subsequent (ICD-10 - Z00.00) Personalized health advice was given to the beneficiary including a written plan for screenings discussed and provided. Advanced care planning reviewed and/or information given as requested. The above visit was performed by DAVID Gómez/ DARCY, under direct supervision of Dr. Manuel Gould DO. Document reviewed and amended by provider signed below. Nov, Flu vaccine need (ICD-10 - Z23) Nov, KAREL (generalized anxiety disorder) (ICD-10 - F41.1) She will contact us in 2 weeks if not doing better, sooner with any side effect Nov, Chronic fatigue (ICD-10 - R53.82) [employer] Other 04-24-2023 Evaluation note* Encounter Date Diagnosis Assessment Notes Treatment Notes Treatment Clinical Notes Jun, KAREL (generalized anxiety disorder) (ICD-10 - F41.1) After discussion, we will resume escitalopram and see if this helps her anxiety and her sleep. We discussed it would likely take 2 to 4 weeks to see benefit so in the meantime she can use low-dose melatonin at bedtime [id number]. [employer] Other 10-26-2022 Evaluation note* Encounter Date Diagnosis Assessment Notes Treatment Notes Treatment Clinical Notes Dec, KAREL (generalized anxiety disorder) (ICD-10 - F41.1) [employer] Other 09-22-2022 Evaluation note* Encounter Date Diagnosis Assessment Notes Treatment Notes Treatment Clinical Notes Nov, Chronic fatigue (ICD-10 - R53.82) We discussed that at this point the cause of her symptoms is unclear. We will proceed with lab work and call with results [employer] Other 03-22-2022 Evaluation note* Encounter Date Diagnosis Assessment Notes Treatment Notes Treatment Clinical Notes May, Mixed hyperlipidemia (ICD-10 - E78.2) No changes, we will review her lab work at her next appointment May, KAREL (generalized anxiety disorder) (ICD-10 - F41.1) [employer] Other Evaluation noteNo assessment information available [facility] Work Phone: Evaluation noteNo [employer] [employer] Other History general Narrative - Reported* Type Description Date Medical History Ruptured Cyst sternal area Medical History COPD mild Medical History Low Fe - Anemia Medical History Hypercholesterolemia Medical History Herpes Zoster 2005 Medical History (L) Cystic Ovary Medical History Diverticulosis Medical History Prior pulmonary nodu le since 2004; recent CT 2010- stable Medical History Panic Attacks Medical History C-diff - Surgical History D & C - Dr. Simental/Dr. Rico 1969 Surgical History Cystoscopy - Dr. Taylor 11/2001 Surgical History Bladder suspension Repair 2002 Surgical History Endometrial biopsy - Dr. Rico 09/2010 Surgical History colonoscopy - 1 polyp removed - Dr. Broderick 2009 Surgical History COLONOSCOPY 09/2017 Hospitalization History See Above Surgical Hx [facility] [employer] Other Hospital Discharge instructions Additional Instructions Follow-up with your primary care doctor Return to ED if develop worsening symptoms [facility] Work Phone: Chief Complaint and Reason for Visit Chief Complaint R53.82 Chief Complaint R53.82 Z13.820 Z78.0 Z12.31 Chief Complaint R53.82 Chief Complaint R53.82 Z13.820 Z78.0 Z12.31 Chief Complaint LRQ pain Advance Directives No Advanced Directives Records Found Advance Directive Response Recorded Date/ Time Advance Directives Yes January 2:44pm Advance Directive Response Recorded Date/ Time Advance Directives Yes January 1:44pm Reason for Referral Reason * FU 05/01 RLQ her velia seen on [place] CT scan - not seen on [facility] Diagnosis 1 Abdominal wall herni a (K43.9) Referral Organization [facility] Family Jose Alberto Cai Referring Provider First Name Manuel Referring Provider Last Name Luis Fernando Referring Provider Specialty Family Prac kathy Referred Organization [facility] Referred Provider Toney Mobley Referred Address ,[place], [place],[address] Referred Provider Specialty Surgery Referral Priority Routine General Notes Lisa Neevs 03/2023 08:48:18 AM >referral received and faxed Summary Purpose Family History No Family History Records Found Additional Source Comments REASON FOR VISIT (unrecogniz ed section and content) 6 month Follow mushtaq, Pt states she has been lightheaded and foggy for about a month. She states this is constant., She states her keeps the house at 87, she has a lot of stress with [facility] awvIF NEEDED ANOTHE COLONOSCOPYER f/u abd pain, Pt here w/ daughter Juany. Pt says she hasn't hadn any abd pain since Friday when in the ER. Juany says mom has had about 10 of these episode in the pain 2 ys., and she screams and cries due to the pain. Pt denies any bowel problems, no constipation. Juany says pt has never seen any other providers for this problems, the ER was the first time.referral to Dr. White ER Care Teams (unrecognized sec tion and content) Team Status: Inactive Member Role Status Dates Manuel Gould DO Primary Care Provider, Attending Provider Active Team Status: Active Member Role Status Dates Manuel Gould DO Primary Care Provider Active Team Status: Inactive Member Role Status Dates Manuel Gould DO Primary Care Provider Active Antonio Sierra DO Attending Provider Active Team Status: Inactive Member Role Status Dates Manuel Gould DO Primary Care Provider, Referring Provider Active Referral Self Attending Provider Active Team Status: Inactive Member Role Status Dates Lazarus Liu DO Emergency Provider Active Sta rt: April 19, 2023 End: April 19, 2023 Manuel Gould DO Primary Care Provider Active Start: April 19, 2023 End: April 19, 2023 Goals (unrecognized section and content) Goals may be documented in a n alternate section INFORMATION SOURCE (unrecogn ized section and content) DATE CREATED AUTHOR 05/02/2023 [facility] FOR RECORDS PERTAINING TO PATIENTS WHO ARE OR HAVE BEEN ENROLLED IN A CHEMICAL DEPENDENCY/SUBSTANCEABUSE PROGRAM, SOME INFORMATION MAY BE OMITTED. This clinical summary was aggregated from multiple sources. Caution should be exercised in using it in the provision of clinical care. This summary normalizes information from multiple sources, and as a consequence, information in this document may materially change the coding, format and clinical context of patient data. In addition, data may be omitted in some cases. CLINICAL DECISIONS SHOULD BE BASED ON THE PRIMARY CLINICAL RECORDS. [facility] [email or web address] [facility]. provides no warranty or guarantee of the accuracy or completeness of information in this document.
[2023-05-15] MEDS: LORAZEPAM 2 MG/ML 1 ML VIAL 0.5 MG IV (17:19)
[2023-05-15 17:29] LABS: Basophils Percent Auto 0.3 % (0.2-2.0); Eosinophils Percent Auto 0.7 % (0.9-7.0); Hematocrit 40.5 % (36.0-48.0); Hemoglobin 13.3 g/dL (12.0-16.0); Immature Granulocytes Abs Auto 0.01 10^3/uL (0.00-0.03); Immature Granulocytes Pct Auto 0.2 % (0.0-0.5); Lymphocytes Absolute Auto 2.3 10^3/uL (1.2-3.8); Lymphocytes Percent Auto 36.8 % (20.5-60.0); Mean Corpuscular HGB Conc 32.8 g/dL (29.9-35.2); Mean Corpuscular Hemoglobin 31.7 pg (26.7-34.0); Mean Corpuscular Volume 96.7 fL (81.0-99.0); Mean Platelet Volume 11.2 fL (9.5-13.5); Monocytes Absolute Auto 0.4 10^3/uL (0.3-0.8); Monocytes Percent Auto 6.7 % (1.7-12.0); Neutrophils Absolute Auto 3.4 10^3/uL (1.4-6.5); Neutrophils Percent Auto 55.3 % (43.0-75.0); Platelet Count 230 10^3/uL (150-450); Red Blood Count 4.19 10^6/uL (4.20-5.40); Red Cell Distribution Width 13.8 % (11.0-15.0); White Blood Count 6.1 10^3/uL (4.0-11.0)
--- NOTE | 2023-05-15 17:37 | ED.ABDPAIN1 ---
HPI - Abdominal Pain General Chief Complaint: Abdominal Pain Stated Complaint: HERNIA-LOWER R SIDE INTESTINE Time Seen by Provider: 05/15/23 17:04 Source: patient and family Mode of arrival: Wheelchair Limitations: no limitations History of Present Illness HPI narrative: 82-year-old female presents for abdominal pain. Much of the history is obtained from her daughter who accompanies her. The patient was apparently diagnosed with a hernia last month. She has a follow-up appointment with the surgeon on May 28. She points to her right lower abdomen and this time the pain started about 2 hours ago. No trauma fever or vomiting. The pain is severe and continuous. Related Data Home Medications Medication Instructions Recorded Confirmed escitalopram oxalate 10 mg tablet 10 mg PO DAILY 04/22/23 04/22/23 estradiol 0.01% (0.1 mg/gram) 1 appful vaginal DAILY 04/22/23 04/22/23 vaginal cream Previous Rx's Medication Instructions Recorded hyoscyamine sulfate 0.125 mg 0.125 mg PO Q6H PRN abdominal pain 04/22/23 tablet (Levsin) #12 tabs metronidazole 500 mg tablet 500 mg PO Q12H 10 days #20 tabs 04/22/23 ondansetron 4 mg disintegrating 4 mg PO Q6H PRN nausea and 04/22/23 tablet vomiting #12 tabs tramadol 50 mg tablet 50 mg PO Q4H PRN pain 4 days #15 04/22/23 tabs Allergies Allergy/AdvReac Type Severity Reaction Status Date / Time amoxicillin Allergy Severe Verified 04/22/23 19:37 phenylephrine Allergy Severe Verified 04/22/23 19:37 Review of Systems ROS Narrative A ten point review of systems is negative except as noted above. [facility] Medical History (Updated 05/15/23 @ 18:47 by Carlton Karimi MD) Hyperlipemia ?E78.5 - Hyperlipidemia, unspecified (ICD-10) COPD (chronic obstructive pulmonary disease) ?J44.9 - Chronic obstructive pulmonary disease, unspecified (ICD-10) C. difficile diarrhea ?A04.72 - Enterocolitis due to Clostridium difficile, not specified as recurrent (ICD-10) Diverticulosis ?K57.90 - Diverticulosis of intestine, part unspecified, without perforation or abscess without bleeding (ICD-10) Surgical History (Updated 04/22/23 @ 19:36 by Jessica Cervantes) H/O eye surgery ?Z98.890 - Other specified postprocedural states (ICD-10) Social History Smoking status: Never smoker Exam Narrative Exam Narrative: Nurses note and vital signs reviewed and patient is not hypoxic. General: The patient appears uncomfortable and is tearful. Skin: Warm, dry, no pallor noted. There is no rash noted. Head: Normocephalic, atraumatic Eye: Normal conjunctiva, no drainage Ears, Nose, Mouth, and Throat: oral mucosa is moist. Nares patent. Cardiovascular: Regular Rate and Rhythm Respiratory: Patient is in no distress, no accessory muscle use, lungs are clear to auscultation, no wheezing, rales or rhonchi Back: non-tender GI: The patient seems to have tenderness in the right lower quadrant. There is no mass or distention. Musculoskeletal: The patient has no evidence of calf tenderness, no pitting edema, symmetrical pulses noted bilaterally Neurological: A&O, normal speech, tremorous Psychiatric: Cooperative Constitutional Vital Signs, click to edit/add: Last Vital Signs Temp 98.4 F 05/15/23 17:06 Pulse 72 05/15/23 17:06 Resp 26 H 05/15/23 17:06 BP 182/90 H 05/15/23 17:06 Pulse Ox 98 05/15/23 17:06 O2 Del Method Room Air 05/15/23 17:06 Course Vital Signs Vital signs: Vital Signs Temperature 98.4 F 05/15/23 17:06 Pulse Rate 72 05/15/23 17:06 Respiratory Rate 26 H 05/15/23 17:06 Blood Pressure 182/90 H 05/15/23 17:06 Pulse Oximetry 98 05/15/23 17:06 Oxygen Delivery Method Room Air 05/15/23 17:06 Temperature 98.4 F 05/15/23 17:06 Pulse Rate 72 05/15/23 17:06 Respiratory Rate 26 H 05/15/23 17:06 Blood Pressure 182/90 H 05/15/23 17:06 Pulse Oximetry 98 05/15/23 17:06 Oxygen Delivery Method Room Air 05/15/23 17:06 MDM - Abdominal Pain MDM Narrative Medical decision making narrative: CT scan is pending and the patient is signed out to Dr. Hale at change of shift. She has a likely UTI and was given IV Cipro and urine culture was ordered as well. Differential Diagnosis Differential diagnosis: Likely abdominal pain, constipation, diverticulitis, gastroenteritis and small bowel obstruction Lab Data Attestation: I reviewed the patient's lab results. Labs: Lab Results 05/15/23 05/15/23 Range/Units 17:20 18:05 WBC 6.1 (4.0-11.0) 10^3/uL RBC 4.19 L (4.20-5.40) 10^6/uL Hgb 13.3 (12.0-16.0) g/dL Hct 40.5 (36.0-48.0) % MCV 96.7 (81.0-99.0) fL MCH 31.7 (26.7-34.0) pg MCHC 32.8 (29.9-35.2) g/dL RDW 13.8 (11.0-15.0) % Plt Count 230 (150-450) 10^3/uL MPV 11.2 (9.5-13.5) fL Neut % (Auto) 55.3 (43.0-75.0) % Lymph % (Auto) 36.8 (20.5-60.0) % [place] % (Auto) 6.7 (1.7-12.0) % Eos % (Auto) 0.7 L (0.9-7.0) % Baso % (Auto) 0.3 (0.2-2.0) % Neut # (Auto) 3.4 (1.4-6.5) 10^3/uL Lymph # (Auto) 2.3 (1.2-3.8) 10^3/uL [place] # (Auto) 0.4 (0.3-0.8) 10^3/uL Eos # (Auto) 0.0 (0.0-0.7) 10^3/uL Baso # (Auto) 0.0 (0.0-0.1) 10^3/uL Abs Immat Gran (auto) 0.01 (0.00-0.03) 10^3/uL Imm/Tot Granulo (auto) 0.2 (0.0-0.5) % Sodium 139 (136-145) mmol/L Potassium 3.7 (3.5-5.1) mmol/L Chloride 102 (98-107) mmol/L Carbon Dioxide 25.9 (21.0-32.0) mmol/L Anion Gap 14.8 BUN 19.0 H (7.0-18.0) mg/dL Creatinine 0.94 (0.55-1.02) mg/dL Est GFR ( Amer) >60 (>=60) Est GFR (Non-Af Amer) 57 L (>=60) BUN/Creatinine Ratio 20.2 Glucose 113 H (74-106) mg/dL Calcium 9.4 (8.5-10.1) mg/dL Total Bilirubin 1.0 (0.2-1.0) mg/dL Direct Bilirubin 0.1 (0.0-0.2) mg/dL AST 27 (15-37) U/L ALT 12 L (14-59) U/L Alkaline Phosphatase 68 (46-116) U/L Total Protein 7.9 (6.4-8.2) g/dL Albumin 3.8 (3.4-5.0) g/dL Globulin 4.1 g/dL Albumin/Globulin Ratio 0.9 Amylase 68 (25-115) U/L Lipase 39.0 (16.0-77.0) U/L Urine Color Lt. yellow (YELLOW) Urine Clarity Clear (CLEAR) Urine pH 7.0 (5.0-9.0) Ur Specific [place] 1.025 (1.005-1.025) Urine Protein Negative (NEG/TRACE) mg/dL Urine Glucose (UA) Negative (NEGATIVE) mg/dL Urine Ketones Negative (NEGATIVE) mg/dL Urine Occult Blood Small A (NEGATIVE) Urine Nitrite Negative (NEGATIVE) Urine Bilirubin Negative (NEGATIVE) Urine Urobilinogen 0.2 (0.2-1.0) EU/dL Ur Leukocyte Esterase Moderate A (NEGATIVE) Urine RBC 5-10 A (0-2) #/HPF Urine WBC 20-50 A (NONE SEEN) #/HPF Ur Squamous Epith Cells Moderate A (NONE/RARE) #/LPF Urine Crystals None seen (None Seen) #/HPF Urine Bacteria Moderate A (NONE SEEN) #/HPF Urine Casts None seen (NONE SEEN) #/LPF Urine Mucus Small A (NONE SEEN) Discharge Plan Discharge Patient Disposition: Still a Patient
[2023-05-15 17:42] LABS: Alanine Aminotransferase 12 U/L (14-59); Albumin Globulin Ratio 0.9; Albumin Level 3.8 g/dL (3.4-5.0); Alkaline Phosphatase 68 U/L (46-116); Amylase 68 U/L (25-115); Anion Gap 14.8; Aspartate Amino Transferase 27 U/L (15-37); BUN Creatinine Ratio 20.2; Bilirubin Direct 0.1 mg/dL (0.0-0.2); Calcium 9.4 mg/dL (8.5-10.1); Carbon Dioxide 25.9 mmol/L (21.0-32.0); Chloride 102 mmol/L (98-107); Estimated GFR (African America >60 (>=60); Estimated GFR (Non-African Ame 57 (>=60); Globulin 4.1 g/dL; Glucose 113 mg/dL (74-106); Potassium 3.7 mmol/L (3.5-5.1); Sodium 139 mmol/L (136-145); Total Protein 7.9 g/dL (6.4-8.2)
--- NOTE | 2023-05-15 18:19 | CT_ITS ---
[address] [address] Patient Name: PARUL PAEZ MRN: [facility]:[id number] date: 1940 Sex: F Assigned Patient Location: ER Current Patient Location: .MAIN Accession/Order Number: [id number] Exam Date: 05/15/2023 18:08 Report Date: 05/15/2023 19:22 At the request of: ANDERS LIVE Procedure: CT abdomen pelvis w con EXAM: CT abdomen pelvis w con; [id number] REASON FOR EXAM: right low abd pain TECHNIQUE: Helical CT images of the abdomen and pelvis were obtained after the administration of IV contrast. Multiplanar reformats were generated at the scanner. Dose reduction technique used: Automated exposure control and/or adjustment of the mA and/or kV according to patient size and/or use of iterative reconstruction technique. COMPARISON: CT abdomen/pelvis 04/22/2023 and 04/19/2023. FINDINGS: Visualized Chest: -Solid juxta pleural nodule in the lateral aspect of the left lower lobe measuring 5 mm, similar. -Solid nodule in the posterior lateral aspect of the right lower lobe measuring 3 mm. -Additional solid 3 mm nodule in the central portion of the right lower lobe. -Partially visualized high density skin lesion in the low midline of the anterior chest wall measuring 17 x 7 mm, likely representing an epidermal inclusion cyst/sebaceous cyst. Abdomen: Liver: Within normal limits. Gallbladder: No calcified gallstones. No acute inflammatory changes. Bile Ducts: Within expected limits for the patient's age. Pancreas: No mass, ductal dilatation, or inflammatory changes. Spleen: No splenomegaly or focal lesion. Small splenule along the anterior aspect of the spleen. Adrenals: No nodules. Kidneys: -No stones or hydronephrosis. -Single simple appearing cyst in the lateral aspect of the interpolar region of the left kidney measuring 10 mm (series 3 image 48). Vascular: No aortic aneurysm. Lymph Nodes: No adenopathy. Abdominal Wall: Small fat-containing umbilical hernia. Pelvis: Left adnexal cyst measuring 18 mm. Bowel/Peritoneal Cavity/Mesentery: -Severe colonic diverticulosis without evidence of acute diverticulitis. -No bowel obstruction or significant ileus. -Perienteric fat stranding seen on 04/19/2023 has resolved. No definite new or worsening bowel inflammation. -Mildly above-average colonic stool burden. -The appendix is normal. -No free air or free fluid. Musculoskeletal: No acute fracture or suspicious osseous lesion. CT/CT abdomen pelvis w con IMPRESSION: 1. No acute intra-abdominal abnormality demonstrated. Specifically, the mild perienteric predominant fat stranding seen on the CT from 04/19/2023 has resolved and there is no evidence of complication related to recent bowel inflammation. 2. Severe colonic diverticulosis without evidence of acute diverticulitis. 3. Mildly above-average colonic stool burden. 4. Left adnexal cyst measuring 18 mm. Consider nonemergent pelvic ultrasound for further evaluation if clinically appropriate based on the patient's age and comorbidities. 5. There are 3 small solid nodules at the lung bases. Consider nonemergent noncontrast CT of the chest for further evaluation if clinically appropriate based on the patient's age and comorbidities. Electronically authenticated by: MAR NOBLES Date: 05/15/2023 19:22
[2023-05-15 18:20] LABS: Bilirubin Urine NEGATIVE (NEGATIVE); Blood Urine SMALL (NEGATIVE); Clarity Urine CLEAR (CLEAR); Color Urine LT. YELLOW (YELLOW); Glucose Urine UA NEGATIVE (NEGATIVE); Ketones Urine NEGATIVE (NEGATIVE); Leukocyte Esterase Urine MODERATE (NEGATIVE); Nitrite Urine NEGATIVE (NEGATIVE); Protein Urine NEGATIVE (NEG/TRACE); Specific Gravity Urine 1.025 (1.005-1.025); Urobilinogen Urine 0.2 EU/dL (0.2-1.0)
[2023-05-15 18:26] LABS: Bacteria Urine MODERATE #/HPF (NONE SEEN); Cast Seen? NONE SEEN #/LPF (NONE SEEN); Crystals Seen? None Seen #/HPF (None Seen); Mucus Urine SMALL (NONE SEEN); Squamous Epithelial Cell Urine MODERATE #/LPF (NONE/RARE); WBC Urine 20-50 #/HPF (NONE SEEN)
[2023-05-15] MEDS: CIPROFLOXACIN IN 5 % DEXTROSE 400 MG/200 ML PIGGYBACK 200 MG IV (18:57)
[2023-05-15 19:07] VITALS: BP 152/70; PULSE 72; RESP 15; O2SAT 98
[2023-05-15] MEDS: NITROFURANTOIN MONOHYD/MAC-CRST 100 MG CAPSULE PO (20:49)
== END 2023-05-15 21:15 | disposition home or self-care (01) ==
PROVIDERS: Emergency Medicine; Emergency Provider Internal Medicine; PCP Family Medicine
DX: R10.9 Unspecified abdominal pain (principal); N39.0 Urinary tract infection, site not specified; K59.00 Constipation, unspecified; N94.89 Other specified conditions associated with female genital organs and menstrual cycle; Z79.899 Other long term (current) drug therapy; E78.5 Hyperlipidemia, unspecified; J44.9 Chronic obstructive pulmonary disease, unspecified; Z98.890 Other specified postprocedural states
CPT/HCPCS: 36415; 74177; 80048; 80076; 81001; 82150; 83690; 85025; 87086; 87150; 87186; 96374; 96375; 99285; J0744; J2060; Q9967